=== PATIENT | female | born 1970 | race Caucasian/White ===

== ENCOUNTER 2020-10-04 08:00 | Day surgery (SDC) | payer OTHER ==
--- OUTSIDE RECORDS SUMMARY | 2020-10-04 08:04 | XMS REPORT | Clinical Summary ---
:1970 Author Organization [facility] Address [address] [place] [address] Care Team Providers Name Role Phone Dianna Snell MD Primary Care Provider Allergies Active Allergy Reactions Severity Noted Date Comments Insulin Nph, Beef-Pork Hives High 04/27/2016 Insulins Rash Low 01/13/2016 Beef, pork insu chasity and glucagon (the suspension that these meds are in) Beef, pork insu chasity and glucagon (the suspension that these meds are in) Phenytoin Sodium Other (See Comments) High 08/22/2013 [facility] Extended Medications Medication Sig Dispensed Refills Start End Status Date Date progesterone Take 100 mg 0 01/31/20 Activ e (PROMETRIUM) 100 MG by mouth 16 capsule daily. loratadine (CLARITIN) Take 10 mg by 0 Active 10 mg tablet mouth daily. B complex with Take 1 0 Activ e C#20-folic acid 1 mg capsule by capsule mouth daily. cholecalciferol, Take 5,000 0 Ac tive vitamin D3, (VITAMIN Units by D3) 5,000 unit capsule mouth daily. lancets (ONETOUCH Check glucose 0 10/14/19 Active DELICA LANCETS) 30 10 times 17 gauge misc daily. Type 1 diabetic on insulin pump ascorbic acid, vitamin Take 1,000 mg 0 Active C, (vitamin C) 1000 MG by mouth tablet daily. levothyroxine Take 25 mcg 0 03/08/20 Acti ve (SYNTHROID, LEVOXYL) by mouth 17 25 mcg tablet every morning. ramipril (ALTACE) 2.5 Take 2.5 mg 0 03/08/20 Active MG capsule by mouth 17 daily. ESTRADIOL ACETATE ORAL Take 1 mg by 0 Active mouth daily. ARMOUR THYROID 60 mg Take 60 mg by 3 08/10/20 Active tablet mouth daily. 17 simvastatin (ZOCOR) 20 Take 20 mg by 0 Active MG tablet mouth every morning. biotin 10,000 mcg Take 1 0 Ac tive capsule capsule by mouth daily. insulin GLARGINE Inject 7 0 Act albert (LANTUS) 100 unit/mL Units under injection (vial) the skin nightly. FIASP FLEXTOUCH U-100 Inject 1 2 05/01/20 Active INSULIN 100 unit/mL (3 Units under 19 mL) insulin pen the skin as needed. Per sliding scale pantoprazole Take 1 tablet 90 tablet 2 05/24/20 Act albert (PROTONIX) 40 MG EC (40 mg total) 19 tablet by mouth daily. gabapentin (NEURONTIN) Take 400 mg by mouth 3 (three) times a day. 400 mg in am 0 Active 400 mg capsule 400 mg at lunch and 600 mg at night folic acid (FOLVITE) 1 Take 1 mg by 0 06/01/20 Active MG tablet mouth daily. 20 azaTHIOprine (IMURAN) Take 1 tablet 90 tablet 1 07/22/2010/22 Active 50 mg tablet (50 mg total) 20 021 by mouth daily. UNABLE TO FIND daily. magnesim liquid 400 0 Active Ionic zinc liquid 15 mg LYSINE ORAL Take 1 tablet 0 Acti ve by mouth as needed. insulin aspart, Inject under 0 A ctive niacinamide, (Fiasp the skin. FlexTouch U-100 Insulin) 100 unit/mL (3 mL) insulin pen hydrOXYchloroQUINE TAKE ONE (1) 90 tablet 1 09/25/19 Active (PLAQUENIL) 200 mg TABLET(S) BY 21 tablet MOUTH ONCE A DAY. Motegrity 2 mg tablet TAKE 1 TABLET 180 tablet 1 10/02/19 Active TWICE A DAY 21 azaTHIOprine (IMURAN) Take 75 mg by 0 10/22 Discontinued 75 mg tablet mouth daily. 020 (Dos e 75 mg every adjustme nt) other day the rest is 50 mg hydroxychloroquine Take by mouth 0 Discontinued (PLAQUENIL) 200 mg daily. 020 ( Reorder) tablet gabapentin (NEURONTIN) Take 300 mg 360 capsule 3 05/01/2008/11 Discontinued 300 mg capsule in the morning, 300 mg in the afternoon, and 600 mg at night. gabapentin (NEURONTIN) Take 1 270 capsule 3 07/05/2007/04 400 mg capsule capsule (400 19 020 mg total) by mouth 3 (three) times a day. MOTEGRITY 2 mg tablet TAKE 1 TABLET 180 tablet 1 10/02/1904/21 Discontinued BY MOUTH 20 020 (Reorder) TWICE A DAY linaCLOtide (LINZESS) Take 1 30 capsule 11 10/04/19 Discontinued 72 mcg capsule capsule (72 20 020 (Re order) mcg total) by mouth daily before breakfast. linaCLOtide (Linzess) Take 1 30 capsule 11 01/16/20 Discontinued 72 mcg capsule capsule (72 20 020 (Th erapy mcg total) by comple justus) mouth daily before breakfast. prucalopride Take 1 tablet 180 tablet 1 06/27/20 Di scontinued (Motegrity) 2 mg (2 mg total) 20 021 tablet by mouth 2 (two) times a day. Accu-Chek Fe Plus 0 06/28/20 Discontinued test strp strip test 20 020 (Error) strips glucagon, human Glucagon Emergency Kit (yary n-recomb) 1 mg solution for injection 0 Discontinued recombinant, 1 mg INJECT 1 MG DIRECTED NEEDED 020 injection azaTHIOprine (IMURAN) Take 50 mg by 0 10/22 Discontinued 50 mg tablet mouth daily. 020 (Reo rder) hydrOXYchloroQUINE Take 1 tablet 90 tablet 1 07/22/20 Discontinued (PLAQUENIL) 200 mg (200 mg 20 021 tablet total) by mouth daily. INSULIN SUBCUTANEOUS Inject under 0 Discontinued PUMP, NOVOLOG,FIASP, the skin 020 (Error) 100 UNIT/ML INSULIN continuously. PUMP INFUSION (NovoLOG) ondansetron ODT Take 1 tablet 30 tablet 1 08/27/20 (Zofran ODT) 4 MG (4 mg total) 20 021 disintegrating tablet by mouth every 8 (eight) hours as needed for nausea or vomiting for up to 30 days. 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 Hypothyroidism 01/27/2017 Abnormal liver diagnostic imaging 01/26/2017 Abnormal LFTs 01/26/2017 Diabetic gastroparesis associated with type 1 diabetes mellitus 04/27/2016 Diabetic diarrhea 04/27/2016 Gastroesophageal reflux disease without esophagitis Allergic Anemia Arthritis Overview: Left thumb Hyperlipidemia Skin disease Disease of thyroid gland Visual impairment Toxic effect of mercury Resolved Problems Problem Noted Date Resolved Date Pulmonary hypertension 08/01/2020 08/09/2020 Overview: Added automatically from request for nicholas cancino [id number] Encounters Date Type Specialty Care Team Description 10/02/2020 Refill Gastroenterology Samy Gonzalez MD 09/24/2020 Refill Rheumatology Luci Jackson MD 09/21/2020 Orders Only Oncology Nautikrystal, Ivtet Hammond MD 08/30/2020 Infusion Oncology Nautiyal, Copper deficien cy (Primary Dx); Ivett Hammond, Pancytopenia (H CC); Iron deficiency anemia due to chronic blood loss 08/30/2020 Travel 08/29/2020 Infusion Oncology Nautiyal, Copper deficien cy (Primary Dx); Ivett Hammond, Pancytopenia (H CC); Iron deficiency anemia due to chronic blood loss 08/28/2020 Infusion Oncology Nautiyal, Copper deficien cy (Primary Dx); Ivett Hammond, Pancytopenia (H CC); Iron deficiency anemia due to chronic blood loss 08/28/2020 Travel 08/27/2020 Infusion Oncology Nautiyal, Copper deficien cy (Primary Dx); Ivett Hammond Pancytopenia (H CC); Iron deficiency anemia due to chronic blood loss 08/27/2020 Orders Only Oncology Colleen Ramon, RACHEL 08/27/2020 Orders Only Oncology Ck Vo, [facility] 08/26/2020 Infusion Oncology Nautiyal, Copper deficien cy (Primary Dx); Ivett Hammond Pancytopenia (H CC); Iron deficiency anemia due to chronic blood loss 08/26/2020 Travel 08/23/2020 Orders Only Oncology Ana Shelton, RN 08/22/2020 Orders Only Pharmacy Anna Singleton Ming 08/20/2020 Orders Only Oncology Ana Shelton, RN 08/19/2020 Orders Only Pharmacy Sheyla Barry, [facility] 08/13/2020 Orders Only Oncology Ivett Castro MD 08/12/2020 Orders Only Oncology Colleen Ramon, RACHEL 08/09/2020 Surgery Procedural Cardiology Rory Benedict Right heart cath MD Rafy [[id number] (CPT)] 08/09/2020 Hospital Encounter Procedural Cardiology Rory Benedict Pulmonary MD Rafy hypertension (H CC) 08/09/2020 Orders Only Oncology Wanda Ramonien cy , RACHEL (Primary Dx) 08/09/2020 Orders Only Pharmacy Sheyla Barry, [facility] 08/09/2020 Travel 08/08/2020 Orders Only Rheumatology Manuel SLE (systemic l upus Luci erythematosus r holly Bui MD syndrome) (HCC) (Primary Dx) 08/08/2020 Documentation Medical Records Provider, Unknown 08/06/2020 Travel 08/01/2020 Travel 08/01/2020 Orders Only Cardiology Rory Benedict Pulmonary cruz ry MD Rafy hypertension (H CC) (Primary Dx) 07/31/2020 Orders Only Rheumatology Luci Jackson MD 07/31/2020 Orders Only Oncology Ivett Castro MD 07/30/2020 Office Visit Oncology Nacarmelina, Lymphopenia; Ivett Hammond, History of auto immune disease 07/30/2020 Travel 07/25/2020 Travel 07/24/2020 Telephone Rheumatology Emeka Dumont MA 07/22/2020 Office Visit Rheumatology Cece, Lymphopenia (Pr imary Dx); Barb, Lymphocytic colitis; Manuel, History of auto immune disease; Luci SLE (systemic l upus erythematosus related syndrome) (HCC); MD Hao Autoimmune hepa titis (HCC); 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) 07/11/2020 Hospital Encounter Radiology Galati, Chronic p fiona Mendez MD congestion of liver 07/11/2020 Orders Only Rheumatology Provider, MD Nir 07/11/2020 Travel 07/04/2020 Travel 07/04/2020 Transcribe Orders Access Galati, Chronic pa nikkive Ruddy Mendez MD congestion of liver (Primary Dx) 06/27/2020 Orders Only Gastroenterology Octavio Patricia RN 06/06/2020 Orders Only Neurology Carmona, Lumbar radiculo mari (Primary Dx); POOJA Sullivan Thoracic back p ain, unspecified back pain laterality, unspecified chronicity 05/28/2020 Telephone Neurology Reynaldo Livingston MD 01/22/2020 Transcribe Orders Access Leroy Solano MD congestion of liver (Primary Dx) 01/16/2020 Orders Only Gastroenterology Octavio Patricia, RACHEL 12/28/2019 Telemedicine Gastroenterology Marilynn Gonzalez ga stroparesis associated with type 1 diabetes mellitus (HCC) (Primary Dx); Samy Mclean MD Gastroesophage al reflux disease without esophagitis 12/28/2019 E-Visit Family Medicine Syeda Stokes RE: E-Visit LANE Louise Submission: Hea rtburn 12/13/2019 Telephone Hepatology Last, Autoimmune hepa titis (HCC) (Primary Dx); MAREN Hollins Abnormal LFTs 11/17/2019 Hospital Encounter Radiology Reynaldo Livingston Cervical MD radiculopathy 10/16/2019 Orders Only Neurology Carmona, Cervical POOJA Sullivan radiculopathy (Primary Dx) 10/16/2019 Telephone Gastroenterology Scarlet Lawrence, RACHEL 10/04/2019 Orders Only Gastroenterology Samy Gonzalez MD after 10/04/2019 Immunizations Name Administration Dates Next Due Influenza Trivalent 06/08/2015 Influenza, Unspecified 05/31/2017 Surgical History Surgery Date Site/Laterality Comments SECTION OTHER SURGICAL HISTORY Hernia FOOT SURGERY Left CARPAL TUNNEL RELEASE Bilateral OTHER SURGICAL HISTORY Left thumb-De Quervain's OTHER SURGICAL HISTORY Left planters tarsal tendon OTHER SURGICAL HISTORY Breast maeve mp & reconstruction APPENDECTOMY COLONOSCOPY lympho colitis HAND SURGERY 2008 and 2012 HERNIA REPAIR SINUS SURGERY 09/20/1996 - 09/19/1997 TONSILLECTOMY 09/20/1988 - 09/19/1989 TUBAL LIGATION 09/20/1996 - 09/19/1997 UPPER GASTROINTESTINAL ENDOSCOPY KIDNEY SURGERY CARDIAC CATHETERIZATION 08/09/2020 N/A Procedur e: Right heart cath; Surgeon: Rory Benedict M D; Location: [facility] Engineer Internship Invasive Locatio n; Service: Cardiol ogy; Laterality: N/A; Medical History Medical History Date Comments Complication of anesthesia Crohn's disease (HCC) Gastroparesis Cirrhosis (HCC) SLE (systemic lupus erythematosus) (HCC) Diabetes mellitus type I (HCC) Allergic Anemia Arthritis Left thumb GERD (gastroesophageal reflux disease) Hyperlipidemia Visual impairment Celiac disease/sprue Toxic effect of mercury Melanoma (HCC) Autoimmune thyroiditis Pancytopenia (HCC) 08/09/2020 Family History Medical History Relation Name Comments Alcohol abuse Father Cancer Father Liver disease Father Gilbert's Alcohol abuse Maternal Grandfather Alcohol abuse Maternal Grandmother Breast cancer Maternal Grandmother Alcohol abuse Mother Breast cancer Mother Cancer Mother Skin cancer Mother Asthma Paternal Grandmother Other Sister PCOS Crohn's disease Sister Diabetes Sister Other Sister Relation Name Status Comments Father Alive Maternal Grandfather Maternal Grandmother Mother Alive Paternal Grandmother Sister Sister Social History Tobacco Use Types Packs/Day Years Used Date Never Smoker Smokeless Tobacco: Never Used Comments: She is , lives by hers elf. 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 Zohaib faria was born in [place] and raised [place] over. Alcohol Use Drinks/Week oz/Week Comments No Sex Assigned at Date Recorded Female 07/21/2020 6:35 PM [employer] Job Start Date Occupation Industry Not on file Not on file Not on file Last Filed Vital Signs Vital Sign Reading Time Taken Comments Blood Pressure 110/56 08/30/2020 4:28 PM [employer] Pulse 77 08/30/2020 4:28 PM [employer] Temperature 36.6 C (97.8 F) 08/30/2020 4:28 PM [employer] Respiratory Rate 18 08/30/2020 4:28 PM [employer]INE [employer]AGE [employer] Oxygen Saturation 99% 08/30/2020 4:28 PM [employer] Inhaled Oxygen Concentration - - Weight 56 kg (123 lb 6.4 oz) 08/30/2020 2:01 PM [employer] Height 157.5 cm (5' 2") 08/09/2020 10:33 AM [employer]ACHINE [employer] Body Mass Index 22.57 08/09/2020 10:33 AM [employer] Plan of Treatment Date Type Specialty Care Team Description 10/22/2020 Office [place] [address] [facility] [address] [place], [place] [address] 10/30/2020 [place] [address] [facility] [address] [place], [place] [address] Health Maintenance Due Date Last Done Comments COVID-19 VACCINE (1 of 2) 1985 CERVICAL CANCER SCREENING 1990 DIABETES: RETINAL EYE EXAM 12/31/2017 01/01/2016 DIABETIC FOOT EXAM 01/26/2018 01/26/2017 BREAST CANCER SCREENING 2019 COLONOSCOPY SCREENING 2019 SHINGLES VACCINES (#1) 2019 INFLUENZA VACCINE 04/20/2020 06/26/2018, 05/31/2017, 2014, Additional history exists Procedures Procedure Name Priority Date/Time Associated Diagnosis Comme nts CBC WITH PLATELET AND Routine 09/21/2020 10:09 Re sults for this DIFFERENTIAL AM [employer] procedure are i n the results section. POC GLUCOSE Routine 08/09/2020 5:05 Results for this PM [employer] procedure are i n the results section. POC GLUCOSE Routine 08/09/2020 4:20 Results for this PM [employer] procedure are i n the results section. POC GLUCOSE Routine 08/09/2020 3:48 Results for this PM [employer] procedure are i n the results section. CV RIGHT HEART CATH Routine 08/09/2020 3:18 Pulmonary Resu lts for this PM [employer] hypertension (HCC) procedure are in the results section. POC GLUCOSE Routine 08/09/2020 3:13 Results for this PM [employer] procedure are i n the results section. POC GLUCOSE Routine 08/09/2020 2:22 Results for this PM [employer] procedure are i n the results section. POC PANEL Routine 08/09/2020 11:21 Results for this AM [employer] procedure are i n the results section. ESTIMATED GFR Routine 08/09/2020 11:21 Results fo r this AM [employer] procedure are i n the results section. POC PANEL Routine 08/09/2020 10:09 Results for this AM [employer] procedure are i n the results section. ESTIMATED GFR Routine 08/09/2020 10:09 Results fo r this AM [employer] procedure are i n the results section. SMEAR REVIEW STAT 08/09/2020 10:08 Results for this AM [employer] procedure are i n the results section. HC COMPLETE BLD COUNT STAT 08/09/2020 10:08 Re sults for this W/AUTO DIFF AM [employer] procedure are i n the results section. ESTIMATED GFR STAT 08/09/2020 9:44 Results fo r this AM [employer] procedure are i n the results section. BASIC METABOLIC PANEL STAT 08/09/2020 9:44 Re sults for this AM [employer] procedure are i n the results section. POC GLUCOSE Routine 08/09/2020 9:06 Results for this AM [employer] procedure are i n the results section. COVID-19 QUALITATIVE Routine 08/07/2020 8:34 Pulmonary artery Results for this PCR AM [employer] hypertension (HCC) procedure are in the results section. URINE Routine 07/31/2020 9:53 Results for this PROTEIN/CREATININE AM [employer] procedure are in RATIO, RANDOM the results section. C-REACTIVE PROTEIN Routine 07/31/2020 9:53 Resul ts for this AM [employer] procedure are i n the results section. URINALYSIS, AUTOMATED Routine 07/31/2020 9:53 Re sults for this WITH MICROSCOPY AM [employer] procedure ar e in the results section. SEDIMENTATION RATE Routine 07/31/2020 9:53 Resul ts for this AM [employer] procedure are i n the results section. DNA(DS) AB, HIGH Routine 07/31/2020 9:53 Results for this AVIDIT AM [employer] procedure are i n the results section. C4 COMPLEMENT Routine 07/31/2020 9:53 Results fo r this COMPONENT AM [employer] procedure are i n the results section. C3 COMPLEMENT Routine 07/31/2020 9:53 Results fo r this COMPONENT AM [employer] procedure are i n the results section. ZINC LEVEL, SERUM Routine 07/31/2020 9:37 Result s for this AM [employer] procedure are i n the results section. COPPER LEVEL, SERUM Routine 07/31/2020 9:37 Resu lts for this AM [employer] procedure are i n the results section. VITAMIN B1 LEVEL, Routine 07/31/2020 9:37 Result s for this WHOLE BLOOD AM [employer] procedure are i n the results section. VITAMIN B12 LEVEL Routine 07/31/2020 9:37 Result s for this AM [employer] procedure are i n the results section. FERRITIN LEVEL Routine 07/31/2020 9:37 Results f or this AM [employer] procedure are i n the results section. IMMUNOFIXATION, SERUM Routine 07/31/2020 9:37 Re sults for this AM [employer] procedure are i n the results section. RETICULOCYTE COUNT, Routine 07/31/2020 9:37 Resu lts for this AUTOMATED AM [employer] procedure are i n the results section. TOTAL IRON BINDING Routine 07/31/2020 9:37 Resul ts for this CAPACITY AM [employer] procedure are i n the results section. LDH Routine 07/31/2020 9:37 Results for this AM [employer] procedure are i n the results section. [id number] Routine 07/31/2020 MRI ABDOMEN W WO Routine 07/11/2020 2:15 Chronic passive Resu lts for this CONTRAST PM CDT congestion of liver procedur e are in the results section. [id number] Routine 06/28/2020 MRI CERVICAL SPINE W Routine 11/17/2019 11:44 Cervical Res ults for this WO CONTRAST AM [employer] radiculopathy procedure are in the results section. ESTIMATED GFR Routine 11/17/2019 10:50 Results fo r this AM [employer] procedure are i n the results section. POC CREATININE Routine 11/17/2019 10:50 Results f or this AM [employer] procedure are i n the results section. after 10/04/2019 Results CBC with platelet and differential (09/21/2020 10:09 AM MACHINE [employer]AGE [employer]ER)Only the most recent of2 resultswithin the time period is included. WBC 3.0 (L) 3.8 - 10.8 [facility] Thousand/uL [place] RBC 2.98 (L) 3.80 - 5.10 [facility] Million/uL [place] HGB 11.4 (L) 11.7 - 15.5 [facility] g/dL [place] HCT 33.0 (L) 35.0 - 45.0 % [facility] [place] MCV 110.7 (H) 80.0 - 100.0 [facility] fL [place] MCH 38.3 (H) 27.0 - 33.0 pg [facility] [place] MCHC 34.5 32.0 - 36.0 [facility] g/dL [place] RDW 14.2 11.0 - 15.0 % [facility] [place] Platelet count 147 140 - 400 [facility] Thousand/uL [place] MPV 14.5 (H) 7.5 - 12.5 fL [facility] [place] Neutrophils, absolute 2,244 1,500 - 7,800 [facility] cells/uL [place] Lymphocytes, absolute 408 (L) 850 - 3,900 [facility] cells/uL [place] Monocytes, absolute 288 200 - 950 [facility] cells/uL [place] Eosinophils, absolute 30 15 - 500 [facility] cells/uL [place] Basophils, absolute 30 0 - 200 [facility] cells/uL [place] Neutrophils 74.8 % [facility] [place] Lymphocytes 13.6 % [facility] [place] Monocytes 9.6 % [facility] [place] Eosinophils 1.0 % [facility] [place] Basophils + RC 1.0 % [facility] [place] Specimen Narrative Performed At AN UPDATE OR CORRECTION HAS BEEN MADE TO NAME [facility] Resulting Agency Comment Performing Organization Information: Site ID: [id number] Name: [facility] Address: [address] [place] [address] Director: Charli Foote Performing Organization Address City/State/ZIP Code Phon e Number CHAR [facility] [place] [address] [place] [address] POC glucose (08/09/2020 5:05 PM MACHINE CAGE MAKER)Only the most recent of6 resultswithin the time period is included. Pathologist Sig nature POC glucose 84 65 - 99 mg/dL [facility] Comment: HOSPITAL Client Application Support Engineer Name: Vanessa Tam Device ID: [id number] Chartable: No Action Needed Specimen Blood Performing Organization Address City/[facility]/ZIP Code Phon e Number [facility] DEPARTMENT OF PATHOLOGY AND [address] [place], [place] [address] GENOMIC MEDICINE [facility] [address] [place] [address] lab tech procedure (08/09/2020 3:18 PM MACHINE CAGE MAKER) Specimen Narrative Performed At This result has an attachment that is no t available. Right femoral access 7F with US guidance. SG to wedge with flouro. [facility] Pressures, saturations recorded. Pressure hemostasis w ith no complication. Indication pulmonary hypertension suggested from non-i nvasive study and high right atrial pressure on prior invasive recording . Findings refute both. Recommendation: No change in Rx. Consider abnorm al PVR with symptoms/elevated pressures during exercise. Plan for bicycle echo exercise when COVID restrictions are eased. Performing Organization Address City/[facility]/ZIP Code Phon e Number [facility] [address] [place] [address], [place] Estimated GFR (08/09/2020 11:21 AM MACHINE CAGE MAKER)Only the most recent of4 resultswithin the time period is included. Estimated GFR >=90 mL/min/1.73 [facility] Comment: [facility]2 HOSPITAL Catergory Units Interpretation G1 >=90 Normal or high G2 60-89 Mildly decreased G3a 45-59 Mildly to moderately decreas ed G3b 30-44 Moderately to severely decre ased G4 15-29 Severely decreased G5 <15 Kidney failure The eGFR was calculated using the Chronic Kidney Disea se Epidemiology Collaboration (CKD-EPI) equation. Interpretation is based on recommendations of the National Kidney Foundation-Kidney Disease Outcomes Kevan lity Initiative (NKF-KDOQI) published in 2014. Specimen Blood Performing Organization Address City/[facility] Phon e Number [facility] DEPARTMENT OF PATHOLOGY AND [address] [place] [address] [address] POC panel (08/09/2020 11:21 AM MACHINE CAGE MAKER)Only the most recent of2 resultswithin the time period is included. POC sodium 140 135 - 148 [facility] mmol/L [facility] potassium 3.8 3.5 - 5.0 [facility] mmol/L [facility] chloride 103 99 - 109 [facility] mmol/L [facility] CO2 25 24 - 31 mmol/L [facility] POC glucose 122 (H) 65 - 99 mg/dL [facility] POC BUN 16 8 - 24 mg/dL [facility] POC creatinine 0.6 0.5 - 0.9 [facility] mg/dl [facility] hematocrit 45 37 - 47 % [facility] POC anion gap 17 8 - 20 mmol/L [facility] Comment: HOSPITAL Client Application Support Engineer Name: Rohit Cabrera Device ID: [id number] Specimen Performing Organization Address [facility] Phon e Number [facility] DEPARTMENT OF PATHOLOGY AND [address] [place] [id number] Smear review (08/09/2020 10:08 AM MACHINE CAGE MAKER) Pathologist Sig nature Platelet slide review Pino slt decr [facility] Anisocytosis Moderate [facility] Polychromasia Moderate [facility] Enlarged platelets Moderate (A) [facility] Specimen Plasma Narrative Performed At K recollect requested form Leah Bee/ [facility] DEPARTMENT OF PATHOLOGY AND GENOMIC Engineer Internship Pro Op at 08/09/2020 11:07 MEDICINE by JN1. Performing Organization Address City/[facility] Phon e Number [facility] DEPARTMENT OF PATHOLOGY AND [address] [place] [address] [address] Basic metabolic panel (08/09/2020 9:44 AM MACHINE CAGE MAKER) Pathologist Sig nature Sodium 133 (L) 135 - 148 mEq/L [facility] Potassium SEE COMMENT 3.5 - 5.0 mEq/L [facility] Comment: HOSPITAL Footnote--------- Unable to report K due to hemolysis; recollect request pending Chloride 98 98 - 112 mEq/L [facility] CO2 22 (L) 24 - 31 mEq/L [facility] Anion gap 13@ANIO 7 - 15 mEq/L [facility] BUN 16 6 - 20 mg/dL [facility] Creatinine 0.56 0.50 - 0.90 [facility] mg/dL [facility] Glucose 167 (H) 65 - 99 mg/dL [facility] Calcium 9.5 8.3 - 10.2 [facility] mg/dL HOSPITAL Specimen Plasma Performing Organization Address [facility] Phon e Number [facility] DEPARTMENT OF PATHOLOGY AND [address] [place] [address] COVID-19 qualitative PCR (08/07/2020 8:34 AM MACHINE CAGE MAKER) Interpretation Negative results do not prec lude 2019-nCoV infection and should not be used as the sole basis for treatment or other patient management decisions. Negative results must be combined with clinical observations, patient history, and epidemiological CORTEZ information. [facility] COVID-19 qualitative Not-Detected Not-Detecte [facility] PCR result d [facility] COVID-19 qualitative See link below for [facility] PCR PDF Lab EVANGELICAL ReportComment: Case HOSPITAL Number: [id number] Specimen Nasal swab Performing Organization Address [facility] Phon e Number [facility] DEPARTMENT OF PATHOLOGY AND [address] [place] [address] DNA(ds) Ab, high avidit (07/31/2020 9:53 AM MACHINE CAGE MAKER) Pathologist Sig nature DNA(DS) Ab, high <12.3 < OR = 30.0 [facility] avidity IU/mL [facility] Specimen Narrative Performed At FASTING:YES [facility] FASTING: YES Resulting Agency Comment Performing Organization Information: Site ID: EZ Name: Char [facility], Address: [address] [place] [phone] Director: Sarika Ansari MD,PhD,MB A Performing Organization Address City/State/ZIP Code Phon e Number [facility] [address] [place], [place] [phone] [facility] [address] Urine protein/creatinine ratio, random (07/31/2020 9:53 AM MACHINE CAGE MAKER) Creatinine, 10 (L) 20 - 275 [facility] urine, random mg/dL [facility] Prot/creat ratio, NOTE 21 - 161 mg/g [facility] urine Comment: creat [facility] THE PROTEIN VALUE IS LESS THAN 4 MG/DL THEREFORE WE ARE UNABLE TO CALCULATE EXCRETION AND/OR CREATININE RATIO. Protein/Creat NOTE 0.021 - 0.161 [facility] Ratio mg/mg creat [facility] Protein, urine <4 (L) 5 - 24 mg/dL [facility] random [facility] Specimen Narrative Performed At FASTING:YES [facility] FASTING: YES Resulting Agency Comment Performing Organization Information: Site ID: RGA Name: [facility] Address: [address] [place] [phone] Director: Charli Foote Performing Organization Address City/State/ZIP Code Phon e Number [facility] [employer] [facility] [place] [phone] Urinalysis, automated with microscopy (07/31/2020 9:53 AM MACHINE CAGE MAKER) Color, UA YELLOW YELLOW [facility] Appearance CLEAR CLEAR [facility] Specific gravity, 1.003 1.001 - 1.035 [facility] urine [facility] pH, urine 5.5 5.0 - 8.0 [facility] Glucose, urine NEGATIVE NEGATIVE [facility] Bilirubin, UA NEGATIVE NEGATIVE [facility] Ketones, UA NEGATIVE NEGATIVE [facility] Occult blood, urine NEGATIVE NEGATIVE [facility] Protein, UA NEGATIVE NEGATIVE [facility] Nitrite, UA NEGATIVE NEGATIVE [facility] Leukocyte esterase, NEGATIVE NEGATIVE [facility] UA [facility] WBC, UA NONE SEEN < OR = 5 /HPF [facility] RBC, UA NONE SEEN < OR = 2 /HPF [facility] Squamous epithelial NONE SEEN < OR = 5 /HPF [facility] cells, UA [facility] Bacteria, UA NONE SEEN NONE SEEN /HPF [facility] Hyaline casts, UA NONE SEEN NONE SEEN /LPF [facility] Specimen Narrative Performed At FASTING:YES [facility] FASTING: YES Resulting Agency Comment Performing Organization Information: Site ID: RGA Name: [facility] Address: [address] [place] [phone] Director: Charli Foote Performing Organization Address [facility] Phon e Number [facility] [place] [address] [place], [place] [phone] Sedimentation rate (07/31/2020 9:53 AM MACHINE CAGE MAKER) Pathologist Sig nature Sedimentation rate 25 (H) < OR = 20 mm/h [facility] Specimen Narrative Performed At FASTING:YES [facility] FASTING: YES Resulting Agency Comment Performing Organization Information: Site ID: RGA Name: [facility] Address: [address] [place] [phone] Director: Charli Foote Performing Organization Address [facility] Phon e Number [facility] [address] [place] [address] C3 complement component (07/31/2020 9:53 AM MACHINE CAGE MAKER) Pathologist Sig nature C3 complement 71 (L) 83 - 193 mg/dL [facility] Specimen Narrative Performed At FASTING:YES [facility] FASTING: YES Resulting Agency Comment Performing Organization Information: Site ID: RGA Name: [facility] Address: [address] [place] [phone] Director: Charli Foote Performing Organization Address [facility] Phon e Number [facility] [address] [place] [phone] C4 complement component (07/31/2020 9:53 AM MACHINE CAGE MAKER) Pathologist Sig nature C4 complement 16 15 - 57 mg/dL [facility] Specimen Narrative Performed At FASTING:YES [facility] FASTING: YES Resulting Agency Comment Performing Organization Information: Site ID: RGA Name: [facility] Address: [address] [place] [phone] Director: Charli Foote Performing Organization Address [facility] Phon e Number [facility] [place] [address] [place] [address] C-reactive protein (07/31/2020 9:53 AM MACHINE CAGE MAKER) Pathologist Sig nature CRP 1.3 <8.0 mg/L [facility] Specimen Narrative Performed At FASTING:YES [facility] FASTING: YES Resulting Agency Comment Performing Organization Information: Site ID: PHIL Name: [facility] Address: [address] [place] [phone] Director: Charli Foote Performing Organization Address [facility] [place] [address] Total iron binding capacity (07/31/2020 9:37 AM MACHINE CAGE MAKER) Pathologist Sig nature Iron level 58 45 - 160 mcg/dL [facility] Iron binding capacity 315 250 - 450 mcg/dL [facility] CS (calc) [facility] Iron saturation 18 16 - 45 % (calc) [facility] Specimen Narrative Performed At FASTING:YES [facility] FASTING: YES Resulting Agency Comment Performing Organization Information: Site ID: PHIL Name: [facility] Address: [address] [place] [phone] Director: Charli Foote Performing Organization Address [facility] [place] [address] Reticulocyte count, automated (07/31/2020 9:37 AM MACHINE CAGE MAKER) Pathologist Sig nature Retic count, manual 2.3 % [facility] Retic absolute, auto 74,060 20,000 - 80,000 [facility] cells/uL [facility] Specimen Narrative Performed At FASTING:YES [facility] FASTING: YES Resulting Agency Comment Performing Organization Information: Site ID: RGA Name: [facility] Address: [address] [place] [phone] Director: Charli Foote Performing Organization Address [facility]/ZIP [facility] [place] [address] Copper level, serum (07/31/2020 9:37 AM MACHINE CAGE MAKER) Copper 42 (L) 70 - 175 [facility] Comment: mcg/dL LIBORIO SHOEMAKER This test was developed and its analytical performance characteristics have been determined by [facility] It has not been cleared or approved by [facility] FDA. This assay has been validated pursuant to the CLI A regulations and is used for clinical purposes. Specimen Narrative Performed At FASTING:YES [facility] FASTING: YES Resulting Agency Comment Performing Organization Information: Site ID: [facility] Name: Char james Address: [address] [place] [address] Director: Nikita Chacon M.D. Performing Organization Address [facility] Phon e Number [facility] [place] [id number] [place] [address] [place] Vitamin B1 level, whole blood (07/31/2020 9:37 AM MACHINE CAGE MAKER) Vitamin B1, 77 (L) 78 - 185 [facility] whole blood Comment: nmol/L [facility] SAHARA Vitamin supplementation within 24 hours prior to blood draw may affect the accuracy of results. This test was developed and its analytical performance characteristics have been determined by [facility]. It has not been cleared or approved by [facility] FDA. This assay has been validated pursuant to the CLI A regulations and is used for clinical purposes. Specimen Narrative Performed At FASTING:YES [facility] FASTING: YES Resulting Agency Comment Performing Organization Information: Site ID: [facility] Name: [facility] Jessie james Address: [address] [place] [address] Director: Nikita Chacon M.D. Performing Organization Address [facility] Phon e Number [facility] [place] [phone] [place] [address] [place] Zinc level, serum (07/31/2020 9:37 AM MACHINE CAGE MAKER) Zinc 65 60 - 130 [facility] Comment: mcg/dL LIBORIO SHOEMAKER This test was developed and its analytical performance characteristics have been determined by [facility] It has not been cleared or approved by [facility] FDA. This assay has been validated pursuant to the CLI A regulations and is used for clinical purposes. Specimen Narrative Performed At FASTING:YES [facility] FASTING: YES Resulting Agency Comment Performing Organization Information: Site ID: [facility] Name: Char james Address: [address] [place] [address] Director: Nikita Chacon M.D. Performing Organization Address [facility] Phon e Number [facility] [place] [phone] [place] [address] [place] Immunofixation, serum (07/31/2020 9:37 AM MACHINE CAGE MAKER) Pathologist Sig nature Interpretation [facility] Comment: [facility]ICS-ABHI II Normal pattern. No monoclonal proteins detected. Specimen Narrative Performed At FASTING:YES [facility] FASTING: YES Resulting Agency Comment Performing Organization Information: Site ID: IG Name: [facility] Address: [address] [place] [phone] Director: Dr. Charli faria Performing Organization Address City/[facility] Phon e Number [facility] II [address] [place] [address] LDH (07/31/2020 9:37 AM MACHINE CAGE MAKER) Pathologist Sig nature LDH 199 120 - 250 U/L [facility] Specimen Narrative Performed At FASTING:YES [facility] FASTING: YES Resulting Agency Comment Performing Organization Information: Site ID: RGA Name: [facility] Address: [address] [place] [phone] Director: Charli Foote Performing Organization Address [facility] Phon e Number [facility] [address] [address] Ferritin level (07/31/2020 9:37 AM MACHINE CAGE MAKER) Pathologist Sig nature Ferritin level 49 16 - 232 ng/mL [facility] N Specimen Narrative Performed At FASTING:YES [facility] FASTING: YES Resulting Agency Comment Performing Organization Information: Site ID: RGA Name: [facility] Address: [address] [place] [phone] Director: Charli Foote Performing Organization Address [facility] Phon e Number [facility] [address] [address] Vitamin B12 level (07/31/2020 9:37 AM MACHINE CAGE MAKER) Pathologist Sig nature Vitamin B12 >2000 (H) 200 - 1100 pg/mL [facility] Specimen Narrative Performed At FASTING:YES [facility] FASTING: YES Resulting Agency Comment Performing Organization Information: Site ID: RGA Name: [facility] Address: [address] [place] [phone] Director: Charli Foote Performing Organization Address City/State/ZIP Code Phon e Number [facility] [address] [facility] [place] [address] Miscellaneous Lab Result (07/31/2020)Only the most recent of2 resultswithin the time period is included. Specimen Blood Narrative Performed At This result has an attachment that is no t available. MRI Abdomen W Wo Contrast (07/11/2020 2:15 PM CDT) Specimen Narrative Performed At This result has an attachment that is no t available. EXAMINATION: MRI ABDOMEN W WO CONTRAST HM [facility] CLINICAL HISTORY: 49 years Female K76. 1 Chronic passive congestion of liver, K76.1 CHRONIC PASSIVE CONGESTION OF LIVER TECHNIQUE: Multiplanar multisequence MR images of the abdomen were obtained pre- and post dynamic gadolinium based contrast administration. Contrast: Gadobutrol (Gadavist) Comparison: August 10, 2018. IMPRESSION: Lower Chest: Lung bases are clear. Liver: Few tiny foci of hypervascularity are seen in the liver, similar to the prior exam when accounting for differences in technique. The previous "nutmeg" appearance of the liver is less prominent likely related to differences in contrast timing. Gallbladder/Biliary: Gallbladder is unre markable. There is no biliary dilatation. Spleen: Normal in size. Pancreas: Unremarkable. Adrenal Glands: Unremarkable. Kidneys: Unchanged left renal pelvocalie ctasis. Right kidney within normal limits. Vascular: IVC and hepatic veins are dist ended, similar to previous study, without stenosis or thrombosis. Patent portal vein. Nodes: No regional adenopathy. Bowel: Bowel is unobstructed. Ascites/fluid collections: None. Musculoskeletal: No suspicious osseous lesions. Other: None. SUMMARY: 1.Previously seen nutmeg appearance of t he liver is less prominent on today's study likely related to differences in contrast timing/technique. The hepatic veins and IVC remain mild to moderately disten ded, and without evidence of stenosis or thrombosis. Liver is normal in contour, without cirrhotic feature s. 2.Unchanged left renal pelvocaliectasis. [id number] Procedure Note Hm Interface, Radiology Results Incoming - 07/11/2020 3:37 PM CDT EXAMINATION: MRI ABDOMEN W WO CONTRAST CLINICAL HISTORY: 49 years Female K76.1 Chronic passive congestion of liver, K76.1 CHRONIC PASSIVE CONGESTION OF LIVER TECHNIQUE: Multiplanar multisequence MR images of the abdomen were obtained pre- and post dynamic gadolinium based contrast administration. Contrast: Gadobutrol (Gadavist) Comparison: August 10, 2018. IMPRESSION: Lower Chest: Lung bases are clear. Liver: Few tiny foci of hypervascularity are seen in the liver, similar to the prior exam when accounting for differences in technique. The previous "nutmeg" appearance of the liver is less prominent likely related to differences in contrast timing. Gallbladder/Biliary: Gallbladder is unre markable. There is no biliary dilatation. Spleen: Normal in size. Pancreas: Unremarkable. Adrenal Glands: Unremarkable. Kidneys: Unchanged left renal pelvocalie ctasis. Right kidney within normal limits. Vascular: IVC and hepatic veins are dist ended, similar to previous study, without stenosis or thrombosis. Patent portal vein. Nodes: No regional adenopathy. Bowel: Bowel is unobstructed. Ascites/fluid collections: None. Musculoskeletal: No suspicious osseous l esions. Other: None. SUMMARY: 1.Previously seen nutmeg appearance of t he liver is less prominent on today's study likely related to differences in contrast timing/technique. The hepatic veins and IVC remain mild to moderately distended, and without evidence of stenosis or thrombosis. Liver is normal in contour, without cir rhotic features. 2.Unchanged left renal pelvocaliectasis. [id number] Performing Organization Address City/State/ZIP Code Phon e Number [facility] [address] [place] [address] MRI Cervical Spine W Wo Contrast (11/17/2019 11:44 AM MACHINE CAGE MAKER) Specimen Narrative Performed At This result has an attachment that is no t available. EXAMINATION: MRI CERVICAL SPINE W WO CONTRAST [facility] CLINICAL HISTORY: M54.12 Radiculopathy cervical pancho on, neck pain COMPARISON: None TECHNIQUE: Multiplanar multisequence non contrast enhanced examination was performed of the cervical spine precontrast as well as postcontrast axial and sagittal T1 images. FINDINGS: Vertebral body heights are maintained. N o focal marrow lesions or acure edema identified. There is some reversal the cervical lord osis centered at C5. There is no spondylolisthesis. Mild Modic type I endplate changes are noted anteriorly at C6-7 with mild edema and enhancement. No significant marrow changes appreciated. The cervicomedullary junction is unremar kable. No cord signal abnormality identified. The partially imaged posterior fossa is grossly intact . No gross masses are present in the visualized preverte bral soft tissues. Axial images through the disc spaces demonstrate the f ollowing: C1-C2: There is narrowing of the atlanto axial interval with spurring. There is no significant stenosis. C2-C3: No significant posterior disc dis ease, spinal canal or neural foraminal stenosis. C3-C4: No significant posterior disc dis ease, spinal canal or neural foraminal stenosis. C4-C5: There is mild disc desiccation wi thout disc bulge or significant spondylosis. The canal and foramina are widely patent. C5-C6: There is mild disc desiccation wi th anterior osteophytosis. There is no posterior spondylosis or canal narrowing. Uncovertebral arthrosis and facet disease is present on the left without stenosis. C6-C7: There is loss of disc height with anterior osteophytosis. There is no posterior spondylosis or canal narrowing. Uncovertebral arthrosis and facet disease results in mild and is a left foraminal fat. There is also a shallow left foraminal protrusion which abuts the exiting left C7 nerve root. Correlate for a left C7 radiculopathy to determine clinical significance. The right foramen is patent. C7-T1: No significant posterior disc dis ease, spinal canal or neural foraminal stenosis. IMPRESSION: There are degenerative changes most prom inent at C6-7 with loss of disc height and disc desiccation. Uncovertebral arthrosis and facet disease is also present on the left with question with shallow left foraminal protrusion. There is some degree of left foraminal narrowing identified with part ial effacement of the perineural fat. Correlate for a left C7 radiculopathy to determine clinical significance of this finding. No other significant abnormality appreciated. [id number] Procedure Note Hm Interface, Radiology Results - 11/17/2019 12:23 PM MACHINE CAGE MAKER EXAMINATION: MRI CERVICAL SPINE W WO CONTRAST CLINICAL HISTORY: M54.12 Radiculopathy cervical region, neck pain COMPARISON: None TECHNIQUE: Multiplanar multisequence non contrast enhanced examination was performed of the cervical spine precontrast as well as postcontrast axial and sagittal T1 images. FINDINGS: Vertebral body heights are maintained. N o focal marrow lesions or acure edema identified. There is some reversal the cervical lord osis centered at C5. There is no spondylolisthesis. Mild Modic type I endplate changes are noted anteriorly at C6-7 with mild edema and enhancement. No significant marrow changes appreciated. The cervicomedullary junction is unremar kable. No cord signal abnormality identified. The partially imaged posterior fossa is grossly intact. No gross masses are present in the visua lized prevertebral soft tissues. Axial images through the disc spaces dem onstrate the following: C1-C2: There is narrowing of the atlanto axial interval with spurring. There is no significant stenosis. C2-C3: No significant posterior disc dis ease, spinal canal or neural foraminal stenosis. C3-C4: No significant posterior disc dis ease, spinal canal or neural foraminal stenosis. C4-C5: There is mild disc desiccation wi thout disc bulge or significant spondylosis. The canal and foramina are widely patent. C5-C6: There is mild disc desiccation wi th anterior osteophytosis. There is no posterior spondylosis or canal narrowing. Uncovertebral arthrosis and facet disease is present on the left without stenosis. C6-C7: There is loss of disc height with anterior osteophytosis. There is no posterior spondylosis or canal narrowing. Uncovertebral arthrosis and facet disease results in mild and is a left foraminal fat. There is also a shallow left foraminal protrusion which abuts the exiting left C7 nerve root. Correlate for a left C7 radiculopathy to determine clinical significance. The right foramen is patent. C7-T1: No significant posterior disc dis ease, spinal canal or neural foraminal stenosis. IMPRESSION: There are degenerative changes most prom inent at C6-7 with loss of disc height and disc desiccation. Uncovertebral arthrosis and facet disease is also present on the left with question with shallow left foraminal protrusion. There is some degree of left foraminal narrowing identified with part ial effacement of the perineural fat. Correlate for a left C7 radiculopathy to determine clinical significance of this finding. No other significant abnormality appreciated. [facility]-[id number] Performing Organization Address City/State/ZIP Code Phon e Number [facility] [address] [place] [address] POC creatinine (11/17/2019 10:50 AM MACHINE CAGE MAKER) POC creatinine 0.6 0.5 - 0.9 [facility] Comment: mg/dl [facility] Client Application Support Engineer Name: Capo NEFF C ARE Device ID: [id number] CENTER Specimen Blood Performing Organization Address City/State/ZIP Code Phon e Number DEPARTMENT OF PATHOLOGY AND [address] [place] [address] [facility], [facility] [address] [place] [address] [facility] after 10/04/2019
--- OUTSIDE RECORDS SUMMARY | 2020-10-04 08:04 | XMS REPORT | Continuity of Care Document ---
:1970 Author Organization [facility] Care Team Providers Name Role Phone [facility] Unavailable Un available Problems Problem Status Onset Date Classification Date Comments Sour ce Reported 719.47 - Active 07/16/2014 [facility] Medications No Data Provided for This Section Allergies, Adverse Reactions, Alerts No Known Medication Allergies Immunizations No Data Provided for This Section Results No Data Provided for This Section Pathology Reports No Data Provided for This Section Diagnostic Reports Report Value Date Source Ankle wo contrast MRI MRI of the left Ankle 07/20/2014 [facility] History: Plantar fasciitis tarsal tunnel release Comparison Study: none Technique: The study was pe rformed on a high-field magnet without intravenous contrast. Findings: Collateral Ligaments: The ATF appears intact. The calcaneal fibular ligament appears intact. The posterior talofibular ligament appears intac t. The deep fibers of the deltoid complex appears i ntact. Syndesmotic Complex: Intact Extensor Tendons: Intact. Flexor Tendons: Intact. Peroneus Tendons: Intact. Achilles Tendon: Intact. There is mild circumferentia l soft tissue edema adjacent to the Achilles tendon suggestive of peritendinitis. No tendon tear. Plantar Fascia: There is mil d thickening of the central band of the plantar fascia within 3 cm of the calcaneal insertion compatible with chronic plantar fasciitis. No mass lesion rupture. No bone marro w edema. The greatest thickness of the plantar f ascia measures 5 mm. Osseous Structures: There ar e no osteochondral defects in the talar dome or tibial plafond. Small ankle effusion without synovial thickening . There is no acute fracture. There is no stress related injury. The middle and posterior subtalar joint appear i ntact. Sinus Tarsi: Talocalcaneal a nd cervical ligaments remain intact. No synovitis or fluid. Tarsal Tunnel: No intrinsic mass or extrinsic encroachment noted upon the tibialis posterior neurovascular bundle. There is suggestion of minim al postoperative changes in the subcutaneous fat superficial to the tarsal tunnel contents at the posterior medial ankle.. Impression: Chronic appearing plantar fasciitis without mass lesion or rupture. Mild Achilles peritendinitis. Question minimal postoperati ve changes in the subcutaneous fat superficial to the contents of the tarsal tunnel. No mass lesion or effacement of the perineural fat. Dictation Code: 100 Consultation Notes No Data Provided for This Section Discharge Summaries No Data Provided for This Section History and Physicals No Data Provided for This Section Vital Signs No Data Provided for This Section Encounters Location Location Encounter Encounter Reason Attending ADM IA Stat us Source Details Type Number For Provider Date Date Visit [facility] Outpt Diag [id number] Tono 07/20 07/21 [facility] [place] Procedures No Data Provided for This Section Assessment and Plan No Data Provided for This Section Plan of Care No Data Provided for This Section Social History No Data Provided for This Section Family History No Data Provided for This Section Advance Directives No Data Provided for This Section Functional Status No Data Provided for This Section
--- OUTSIDE RECORDS SUMMARY | 2020-10-04 08:05 | XMS REPORT | Continuity of Care Document ---
:1970 Author Organization [facility] t Address [address] [place] [address] Care Team Providers Name Role Phone Don Snell MD. Primary Care Physician Vinay Gonzalez MD Attending Clinician Hao Jackson MD Attending Clinician Manish Catsro MD Attending Clinician Tristen RAMOS Attending Clinician Unavailable Tavo [facility] Attending Clinician Unavailable Nikita RN Attending Clinician Unavailable Mani [facility] Attending Clinician Unavailable Jhonny [facility], A Attending Clinician Unavailable Rafy Benedict MD Attending Clinician Provider Attending Clinician Unavailable Kenrick Dumont MA Attending Clinician Unavailable Cece VENEGAS Attending Clinician Andrea Solano MD Attending Clinician Constantine IGLESIAS Attending Clinician Harshad RAMOS Attending Clinician Unavailable Mathew PATTON Attending Clinician Unavailable Yara IGLESIAS Attending Clinician Aspen Stokes NP Attending Clinician Last ENGEL Attending Clinician Unavailable Howard RAMOS Attending Clinician Unavailable Kari Gusman Attending Clinician STEPHANIE Admitting Clinician Unavailable Payers Payer Name Policy Type Policy Effective Date Expiration Date Sour ce Number AETNAAETNA [id number] 2020 [facility] Gisel LEE/[id number] -Present HMO Problems Condition Condition Condition Status Onset Resolution Last Treating Co mments Source Name Details Category Date Date Treatment Clinician Date 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 1-20 Me thodi 00:00: st Pancytopen Pancytopen Disease Active 2019-09 H lucas ia ia 1-20 Methodi 00:00: st 00 Cervical Cervical Disease Active [place] radiculopa radiculopa 8-12 Me [facility] thy thy 00:00: st 00 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- Me thodi regurgitat regurgitat 00:00: st ion) ion) 00 Exposure Exposure Disease Active [place] to mercury to mercury 6-13 Me thodi 00:00: st 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 5-12 Meth martha 00:00: st 00 Hypothyroi Hypothyroi Disease Active H lucas dism dism 5-10 Methodi 00:00: st 00 Abnormal Abnormal Disease Active [place] liver liver 5 Methodi diagnostic diagnostic 00:00: st imaging imaging 00 Abnormal Abnormal Disease Active [place] LFTs LFTs 5- Methodi 00:00: st 00 Diabetic Diabetic Disease Active [place] gastropare gastropare 8-08 Me thodi sis sis 00:00: st associated associated 00 with type with type 1 diabetes 1 diabetes mellitus mellitus Diabetic Diabetic Disease Active [place] diarrhea diarrhea 808 Method i 00:00: st 00 Gastroesop Gastroesop Disease Active H lucas hageal hageal 808 Methodi reflux reflux 00:00: st disease disease 00 without without esophagiti esophagiti s s 719.47 - Diagnosis Active 2013-092014-07-20 M emoria JOINT 0- 07:49:00 l PAIN-ANKL 719.47 - 00:01: Her william JOINT 00 PAIN-ANKL Active 07/16/2014 MH OPID [facility] Allergic Allergic Disease Active [place] Methodi st Anemia Anemia Disease Active [place] Methodi Arthritis Arthritis Disease Active Overview: [place] Left Methodi thumb st Hyperlipid Hyperlipid Disease Active H lucas emia emia Methodi st Skin Skin Disease Active [place] disease disease Methodi st Disease of Disease of Disease Active H luc[facility] thyroid thyroid Methodi gland gland st Visual Visual Disease Active [place] impairment impairment Me thodi st 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 st Pulmonary Pulmonary Disease Resolve 2019-092020-08-09 2020-08-09 [place] hypertensi hypertensi d -12 00:00:00 15:32:08 Methodi on on 00:00: st 00 Allergies, Adverse Reactions, Alerts Allergy Allergy Status Severity Reaction(s) Onset Inactive Treating Comm ents Source Name Type Date Date Clinician Insulin Propensi Active Hives [place] Nph, ty to 04-27 Methodi Beef-Por adverse 00:00: st k reaction 00 s to drug Insulins Propensi Active Rash Beef, [place] ty to 01-12 pork Methodi adverse 00:00: insulin st reaction 00 and s to glucagon drug (the suspensio n that these meds are in)Beef, pork insulin and glucagon (the suspensio n that these meds are in) Phenytoi Propensi Active Other (See 2012-09 nystagmus [place] n Sodium ty to Comments) 2 Metho di Extended adverse 00:00: st reaction 00 s to drug Family History Family Member Diagnosis Comments Start Date Stop Date Source Natural father Alcohol abuse [place] [employer] Natural father Cancer [facility] thodist Natural father Liver disease [place] [employer] Maternal grandfather Alcohol abuse [place] Maternal grandmother Alcohol abuse [place] Maternal grandmother Breast cancer [place] Natural mother Alcohol abuse [place] [employer] Natural mother Breast cancer [place] [employer] Natural mother Cancer [facility] thodist Natural mother Skin cancer [facility] [place] [place] ethodist Paternal grandmother Asthma [place] Natural sister Crohn's disease [place] Natural sister Diabetes [facility] thodist Natural sister Other [facility] thodist Social History Social Habit Start Date Stop Date Quantity Comments Source Sex Assigned At [facility] ethodist Tobacco use and 2020-08-12 2020-08-[address] [facility] [place] ethodist exposure 00:00:00 00:00:00 Alcohol intake 2020-08-12 2020-08-12 Current [facility] thodist 00:00:00 00:00:00 non-drinker of alcohol (finding) Tobacco Comment 2017-01-26 2017-01-26 She is , Caty ston [employer] 00:00:00 00:00:00 lives by herself. 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 She was born in [place]. Smoking Status Start Date Stop Date Source Never smoker [place] Method[facility] t Medications Ordered Filled Start Stop Current Ordering Indication Dosage Frequency Signature Comments Components Source Medication Medication Date Date Medication? Clinician (SIG) Name Name Mandy 2 Yes TAKE 1 [place] mg tablet 1-13 TABLET Methodi 00:00: TWICE A st 00 DAY hydrOXYchlo Yes TAKE ONE [place] roQUINE 1-06 (1) Methodi (PLAQUENIL) 00:00: TABLET(S) s t 200 mg 00 BY MOUTH tablet ONCE A DAY. loratadine 2019-09 Yes 10mg QD Take 10 mg [place] (CLARITIN) 2-10 by mouth Metho di 10 mg 14:58: daily. st tablet 44 B complex 2019-09 Yes 1{capsu QD Take 1 Cat[place] ston with 2-10 le} capsule by Methodi C#20-folic 14:58: mouth st acid 1 mg 44 daily. capsule cholecalcif 2020 Yes 5000U QD Take 5,000 [place] rigoberto, 2-10 Units by Methodi vitamin D3, 14:58: mouth st (VITAMIN 44 daily. D3) 5,000 unit capsule ascorbic 2020 Yes 1000mg QD Take 1,000 [place] acid, 2-10 mg by Methodi vitamin C, 14:58: mouth st (vitamin C) 44 daily. 1000 MG tablet ESTRADIOL 2019-09 Yes 1mg QD Take 1 mg [place] st[place] ACETATE 2-10 by mouth Methodi ORAL 14:58: daily. st 44 simvastatin 2019- Yes 20mg QD Take 20 mg [place] (ZOCOR) 20 2-10 by mouth Metho di MG tablet 14:58: every st 44 morning. biotin 2020- Yes 1{capsu QD Take 1 [place] 10,000 mcg 2-10 le} capsule by Met fatimai capsule 14:58: mouth st 44 daily. insulin 2020- Yes 7U QD Inject 7 [place] GLARGINE 2-10 Units Methodi (LANTUS) 14:58: under the st 100 unit/mL 44 skin injection nightly. (vial) gabapentin 2019-09 Yes 400mg Q.[id number] Take 400 [place] (NEURONTIN) 2-10 [id number] mg by M ethodi 400 mg 14:58: 3D mouth 3 st capsule 44 (three) times a day. 400 mg in am 400 mg at lunch and 600 mg at night UNABLE TO 2019-09 Yes QD daily. [place] FIND 2-10 magnesim Methodi 14:58: liquid 400 st 44 Ionic zinc liquid 15 mg LYSINE ORAL 2019-09 Yes 1{tbl} Take 1 Thaddeus davey 2-10 tablet by Methodi 14:58: mouth as st 44 needed. insulin 2019-09 Yes Inject [place] aspart, 2-10 under the Methodi niacinamide 14:58: skin. st , (Fiasp 44 FlexTouch U-100 Insulin) 100 unit/mL (3 mL) insulin pen ondansetron 2019-09 No 4mg Q8H Take 1 Caty maamerupali ODT (Zofran 2-08 09-26 tablet (4 Me thodi ODT) 4 MG 00:00: 23:59 mg total) st disintegrat 00 :00 by mouth ing tablet every 8 (eight) hours as needed for nausea or vomiting for up to 30 days. INSULIN 2019-09- No Inject [place] SUBCUTANEOU 10-09 under the Az thodi S PUMP, 15:57: 00:[address] NOVOLOG,PAUL 57 :00 continuous SP, 100 ly. UNIT/ML INSULIN PUMP INFUSION (NovoLOG) hydroxychlo 2019-09- No QD Take by Thaddeus davey roquine 09-21 mouth Methodi (PLAQUENIL) 16:54: 00:[address] 200 mg 39 :00 tablet azaTHIOprin 2019-09- No 50mg QD Take 50 mg [place] e (IMURAN) 09-21 by mouth Meth martha 50 mg 16:54: 00:[address] tablet 39 :00 glucagon, 2019-09- No Glucagon [place] st[place] human 09-21 Emergency Methodi recombinant 16:03: 00:[address] , 1 mg 31 :00 (human-rec injection omb) 1 mg solution for injection INJECT 1 MG DIRECTED NEEDED azaTHIOprin 2019-09- No 75mg QD Take 75 mg [place] e (IMURAN) 09-21 by mouth Meth martha 75 mg 16:01: 00:[address] tablet 39 :00 mg every other day the rest is 50 mg azaTHIOprin 2019-09- Yes 50mg QD Take 1 [place] st[place] e (IMURAN) 09-21 tablet (50 Me thodi 50 mg 00:00: 23:59 mg total) st tablet 00 :00 by mouth daily. hydrOXYchlo 2019-09 No 200mg QD Take 1 [place] roQUINE 09-21 tablet Methodi (PLAQUENIL) 00:00: 00:00 ([address] 200 mg 00 :00 total) by tablet mouth daily. Accu-Chek 2019-09- No [place] Fe Plus 008-09 Methodi test strp 00:00: 00:00 st strip test 00 :00 strips prucaloprid 2019-09- No 2mg Q.5D Take 1 [place] e 10-02 tablet (2 Methodi (Motegrity) 00:00: 00:00 mg total) st 2 mg tablet 00 :00 by mouth 2 (two) times a day. folic acid Yes 1mg QD Take 1 mg [place] (FOLVITE) 1 06-01 by mouth Meth martha MG tablet 00:00: daily. st 00 linaCLOtide 2019- No 72ug QD Take 1 [place] st[place] (Linzess) 4-07-22 capsule Method i 72 mcg 00:00: 00:00 ([address] capsule 00 :00 total) by mouth daily before breakfast. linaCLOtide 2019- No 72ug QD Take 1 [place] st[place] (LINZESS) 1-15 01-15 capsule Method i 72 mcg 00:00: 00:00 ([address] capsule 00 :00 total) by mouth daily before breakfast. MOTEGRITY 2 2019- No TAKE 1 Caty ston mg tablet 10-02 TABLET BY Meth martha 00:00: 00:[address] 00 :00 TWICE A DAY gabapentin 2018-09- No 400mg Q.[id number] Take 1 [place] (NEURONTIN) 0-16 10-15 [id number] capsule Methodi 400 mg 00:00: 23:59 3D ([address] capsule 00 :00 total) by mouth 3 (three) times a day. pantoprazol Yes 40mg QD Take 1 [place] e 9-04 tablet (40 Methodi (PROTONIX) 00:00: mg total) st 40 MG EC 00 by mouth tablet daily. FIASP Yes 1U Inject 1 [place] FLEXTOUCH 8-12 Units Methodi U-100 00:00: under the st INSULIN 100 00 skin as unit/mL (3 needed. mL) insulin Per pen sliding scale gabapentin 2020- No Take 300 [place] (NEURONTIN) 8-12 11-19 mg in the Me thodi 300 mg 00:00: 00:00 morning, st capsule 00 :00 300 mg in the afternoon, and 600 mg at night. ARMOUR 2016-09 Yes 60mg QD Take 60 mg [place] THYROID 60 1-21 by mouth Metho di mg tablet 00:00: daily. st 00 levothyroxi Yes 25ug QD Take 25 [place] ston ne 6-19 mcg by Methodi (SYNTHROID, 00:00: mouth st LEVOXYL) 25 00 every mcg tablet morning. ramipril Yes 2.5mg QD Take 2.5 [place] (ALTACE) 6-19 mg by Methodi 2.5 MG 00:00: mouth st capsule 00 daily. lancets Yes Check [place] (ONETOUCH 1-25 glucose 10 Meth martha DELICA 00:00: times st LANCETS) 30 00 daily. gauge misc Type 1 diabetic on insulin pump progesteron Yes 100mg QD Take 100 [place] e 5-13 mg by Methodi (PROMETRIUM 00:00: mouth st ) 100 MG 00 daily. capsule Immunizations Ordered Immunization Filled Immunization Date Status Commen ts Source Name Name Influenza, 2017-05-31 Completed Lior Unspecified 00:00:00 [employer] Influenza Trivalent 2015-06-08 Completed Adri on 00:00:00 [employer] Vital Signs Vital Name Observation Time Observation Value Comments Source Systolic blood 2020-08-30 16:28:00 110 mm[Hg] Scarlett Batres pressure Diastolic blood 2020-08-30 16:28:00 56 mm[Hg] [place] [facility] [facility] pressure Heart rate 2020-08-30 16:28:00 77 /min Lior Batres Body temperature 2020-08-30 16:28:00 36.56 Juliette [place] [employer] Respiratory rate 2020-08-30 16:28:00 18 /min Elysia Batres Oxygen saturation in 2020-08-30 16:28:00 99 /min Lior Batres Arterial blood by Pulse oximetry Body weight 2020-08-30 14:01:00 55.974 kg Lior Batres BMI 2020-08-30 14:01:00 22.57 kg/m2 Lior Batres Body height 2020-08-09 10:33:00 157.5 cm Lior Batres Procedures Procedure Date / Time Performed Performing Clinician Sourc e CBC WITH PLATELET AND 2020-09-21 10:09:00 Manoj Castro DIFFERENTIAL POC GLUCOSE 2020-08-09 17:05:00 Lidya Benedict POC GLUCOSE 2020-08-09 16:20:00 Lidya Benedict POC GLUCOSE 2020-08-09 15:48:00 Lidya Benedict CV RIGHT HEART CATH 2020-08-09 15:18:40 Lidya Benedict [facility] [employer] POC GLUCOSE 2020-08-09 15:13:00 Lidya Benedict POC GLUCOSE 2020-08-09 14:22:00 Lidya Benedict ESTIMATED GFR 2020-08-09 11:21:00 Lidya Benedict POC PANEL 2020-08-09 11:21:00 Lidya Benedict ESTIMATED GFR 2020-08-09 10:09:00 Lidya Benedict POC PANEL 2020-08-09 10:09:00 Lidya Benedict HC COMPLETE BLD COUNT 2020-08-09 10:08:00 Lidya Benedict W/AUTO DIFF SMEAR REVIEW 2020-08-09 10:08:00 Lidya Benedict BASIC METABOLIC PANEL 2020-08-09 09:44:00 Lidya Benedict ESTIMATED GFR 2020-08-09 09:44:00 Lidya Benedict POC GLUCOSE 2020-08-09 09:06:00 Lidya Benedict COVID-19 QUALITATIVE PCR 2020-08-07 08:34:00 Lidya Benedict C4 COMPLEMENT COMPONENT 2020-07-31 09:53:00 Luci Jackson DNA(DS) AB, HIGH AVIDIT 2020-07-31 09:53:00 Luci Jackson SEDIMENTATION RATE 2020-07-31 09:53:00 Luci Jackson URINALYSIS, AUTOMATED 2020-07-31 09:53:00 Luci Jackson WITH MICROSCOPY C-REACTIVE PROTEIN 2020-07-31 09:53:00 Luci Jackson URINE PROTEIN/CREATININE 2020-07-31 09:53:00 Luci Jackson RATIO, RANDOM LDH 2020-07-31 09:37:00 Manoj Castro TOTAL IRON BINDING 2020-07-31 09:37:00 Manoj Castro CAPACITY RETICULOCYTE COUNT, 2020-07-31 09:37:00 Manoj Castro AUTOMATED IMMUNOFIXATION, SERUM 2020-07-31 09:37:00 Manoj Castro FERRITIN LEVEL 2020-07-31 09:37:00 Manoj Castro VITAMIN B12 LEVEL 2020-07-31 09:37:00 Manoj Castro [employer] VITAMIN B1 LEVEL, WHOLE 2020-07-31 09:37:00 Manoj Castro BLOOD COPPER LEVEL, SERUM 2020-07-31 09:37:00 Manoj Castro ZINC LEVEL, SERUM 2020-07-31 09:37:00 Manoj Castro [employer] [id number] 2020-07-31 00:00:00 ProviderNir MRI ABDOMEN W WO CONTRAST 2020-07-11 14:15:00 Ruddy Solano [id number] 2020-06-28 00:00:00 Provider, Nir Batres MRI CERVICAL SPINE W WO 2019-11-17 11:44:48 Mandy Velazco [employer] CONTRAST POC CREATININE 2019-11-17 10:50:00 Mandy Velazco Meth odist ESTIMATED GFR 2019-11-17 10:50:00 Mandy Velazco Plan of Care Planned Activity Planned Date Details Comments Source Future Scheduled 2020-04-20 INFLUENZA VACCINE [place] [facility] [facility] Test 00:00:00 [code = INFLUENZA VACCINE] Future Scheduled 2019 BREAST CANCER [place] Me thodist Test 00:00:00 SCREENING [code = BREAST CANCER SCREENING] Future Scheduled 2019 COLONOSCOPY SCREENING [place] [facility] Test 00:00:00 [code = COLONOSCOPY SCREENING] Future Scheduled 2019 SHINGLES VACCINES [place] [facility] Test 00:00:00 (#1) [code = SHINGLES VACCINES (#1)] Future Scheduled 2018-01-26 DIABETIC FOOT EXAM [place] [facility] [facility] Test 00:00:00 [code = DIABETIC FOOT EXAM] Future Scheduled 2017-12-31 DIABETES: RETINAL EYE [place] [facility] Test 00:00:00 EXAM [code = DIABETES: RETINAL EYE EXAM] Future Scheduled 1990 Screening for [place] Me thodist Test 00:00:00 malignant neoplasm of cervix (procedure) [code = 582528224] Future Scheduled 1985 COVID-19 VACCINE (1 [place] [facility] [facility] Test 00:00:00 of 2) [code = COVID-19 VACCINE (1 of 2)] Encounters Start End Encounter Admission Attending Care Care Encounter Source Date/Time Date/Time Type Type Clinicians Facility Department ID 2020-08-30 2020-08-30 Outpatient [facility] [id number] [place] 00:00:00 00:00:00 ABELARDOTAN [address] 2020-08-29 2020-08-29 Outpatient NAUTIYAL, [place] [id number] [place] 00:00:00 00:00:00 ABELARDOTAN [address] 2020-08-28 2020-08-28 Outpatient NAUTIYAL, [place] [id number] [place] 00:00:00 00:00:00 ABELARDOTAN [address] 2020-08-27 2020-08-27 Outpatient NAUTIYAL, [place] [id number] [place] 00:00:00 00:00:00 ABELARDOTAN [address] 2020-08-26 2020-08-26 Outpatient NAUTIYAL, [place] [id number] [place] 00:00:00 00:00:00 KIRTAN [address] 2020-08-09 2020-08-09 Outpatient STEPHANIE, [facility] [id number] [place] 00:00:00 00:00:00 LIDYA [address] 2020-08-07 2020-08-07 Outpatient STEPHANIE, [facility] [id number] [place] 00:00:00 00:00:00 LIDYA [address] 2020-07-30 2020-07-30 Outpatient BOBBY, [facility] [id number] [place] 00:00:00 00:00:00 MANOJ [address] 2020-07-22 2020-07-22 Outpatient FAKOYA, [facility] [id number] [place] 00:00:00 00:00:00 LATIFA [address] 2020-07-11 2020-07-11 Outpatient ASHLEY, [facility] [id number] [place] 00:00:00 00:00:00 RUDDY [address] 2019-12-28 2019-12-28 Outpatient ZAINAB, [facility] [id number] [place] 00:00:00 00:00:00 PRIYANK [address] 2019-11-17 2019-11-17 Outpatient MANDY VELAZCO [facility] [id number] [place] 00:00:00 00:00:[address] 2014-07-20 2014-07-20 Outpatient GARRET Gusman [id number] 07:40:00 23:59:00 Tono Pierce 00 Results Test Description Test Time Test Comments Results Result Comments Source CBC with platelet and differential 2020-09-22 02:30:00 Test Item Value Reference Range Interpretation Comme nts WBC (test code = 6690-2) 3.0 3.8- 10.8 Thousand/uL L RBC (test code = 789-8) 2.98 3.80- 5.10 Million/uL L HGB (test code = 718-7) 11.4 g/dL 11.7-15.5 L HCT (test code = 4544-3) 33.0 % 35-45 L MCV (test code = 787-2) 110.7 fL 80-100 H MCH (test code = 785-6) 38.3 pg 27-33 H MCHC (test code = 786-4) 34.5 g/dL 32-36 RDW (test code = 788-0) 14.2 % 11-15 Platelet count (test code = 147 140- 400 Thousand/uL 777-3) MPV (test code = 776-5) 14.5 fL 7.5-12.5 H Neutrophils, absolute (test 2244 1,500 - 7,800 cells/uL code = 751-8) Lymphocytes, absolute (test 408 850- 3,900 cells/uL L code = 731-0) Monocytes, absolute (test code 288 200- 950 cells/uL = 742-7) Eosinophils, absolute (test 30 15- 500 cells/uL code = 711-2) Basophils, absolute (test code 30 0- 200 cells/uL = 704-7) Neutrophils (test code = 74.8 % 770-8) Lymphocytes (test code = 13.6 % 736-9) Monocytes (test code = 5905-5) 9.6 % Eosinophils (test code = 1.0 % 713-8) Basophils + RC (test code = 1.0 % 706-2) SYDNIE (test code = SYDNIE) AN UPDATE OR CORRECTION HAS BEEN MADE TO NAME RAC (test code = RAC) Performing Organization Information: Site ID: [id number] Name: [facility] [facility] Address: [address] [place] [phone] Director: Charli Foote Lab Interpretation (test code Abnormal = 75700-7) [facility] lab [id number] 13:49:40Right femoral access 7F with US guidance. SG to wedge with flouro. Pressures, saturations recorded. P ressure hemostasis with no complication. Indication pulmonary hypertension suggested from non-invasive study and high right atrial pressure on prior invasive recording. Findings refute both. Recommendation: No change in Rx. Consider abnormal PVR with symptoms/elevated pressures during exercise. Plan for bicycle echo exercise when COVID restrictions are eased.[facility] [id number] 17:06:30 Test Item Value Reference Range Interpretation Comments POC glucose (test 84 mg/dL 65-99 N[employer]er N ruddy: Le code = 54352-1) Ryne ice ID: [id number] able: No Action Needed [facility] [id number] 11:23:24 Test Item Value Reference Range Interpretation Comments POC sodium (test code = 140 mmol/L 291-191 3734-0) POC potassium (test 3.8 mmol/L 3.5-5 code = 6298-4) POC chloride (test code 103 mmol/L 99-109 = 2069-3) POC CO2 (test code = 25 mmol/L 24-31 85038-6) POC glucose (test code 122 mg/dL 65-99 H = 2339-0) POC BUN (test code = 16 mg/dL 8 6299-2) POC creatinine (test 0.6 mg/dl 0.5-0.9 code = 51970-1) POC hematocrit (test 45 % 37-47 code = 4544-3) POC anion gap (test 17 mmol/L 05-09 [employer]er Name: code = 9253119) Rohit Diaz ID: [id number] Lab Interpretation Abnormal (test code = 81370-0) Lior MethodistEstimated [id number] 11:23:24 Test Item Value Reference Range Interpretation Comments Estimated GFR (test >=90 mL/min/1.73 m2 Caterg ory Units code = 27514-9) Interpretati onG1 >=90 Normal or highG2 60-89 Mildly nqnabmlzvV4y 45-59 Mildly to mode rately naubwctnxB5r 30-44 Moderately to severely decreasedG4 15-29 Severely decre asedG5 <15 Kidn ey failureThe eGFR was calculated usin g the Chronic Kidney Disease Epidemiology Co llaboration (CKD-EPI) equat ion. Interpretation is based on recommendations of the National Kidney Foundation-Kidn ey Disease Outcomes Qualit y Initiative (NKF-KDOQI) pub lished in 2014. Lior AguiaristSmear [id number] 11:17:52 Test Item Value Reference Range Interpretation Comments Platelet slide review Pino slt decr (test code = 38118-6) Anisocytosis (test code = Moderate 702-1) Polychromasia (test code Moderate = 01397-4) Enlarged platelets (test Moderate A code = 92166-4) SYDNIE (test code = SYDNIE) K recollect requested form Leah Bee/ Fire Loss Prevention Engineer Pro Op at 08/09/2020 11:07 by JN1. Lab Interpretation (test Abnormal code = 32002-9) [facility] metabolic [id number] 11:03:48 Test Item Value Reference Range Interpretation Comments Sodium (test code = 133 135- 148 mEq/L L 2951-2) Potassium (test code = SEE COMMENT 3.5- 5.0 mEq/L Dylan tnote---------U 2823-3) nable to report K due to hemolysi s; recollect reque st pending Chloride (test code = 98 98- 112 mEq/L 2075-0) CO2 (test code = 8-9) 22 24- 31 mEq/L L Anion gap (test code = 13@ANIO 7- 15 mEq/L 40644-4) BUN (test code = 3094-0) 16 mg/dL 6-20 Creatinine (test code = 0.56 mg/dL 0.5-0.9 2160-0) Glucose (test code = 167 mg/dL 65-99 H 2345-7) Calcium (test code = 9.5 mg/dL 8.3-10.2 08654-3) Lab Interpretation (test Abnormal code = 63485-6) [place] MethodistC-reactive [id number] 01:49:00 Test Item Value Reference Range Interpretation Comments CRP (test code = 1.3 mg/L <8.0 1988-5) SYDNIE (test code = FASTING:YESFASTING: YES SYDNIE) RAC (test code = Performing Organization RAC) Information: Site ID: [id number] Name: [facility] Address: [address] [place] [phone] Director: Charli Foote [place] StefaniaistC4 complement [id number] 01:49:00 Test Item Value Reference Range Interpretation Comments C4 complement (test 16 mg/dL 15-57 code = 4498-2) SYDNIE (test code = SYDNIE) FASTING:YESFASTING: YES RAC (test code = RAC) Performing Organization Information: Site ID: [facility] Name: [facility] Address: [address] [place] [phone] Director: Charli Foote [place] MethodistC3 complement [id number] 01:49:00 Test Item Value Reference Range Interpretation Comments C3 complement (test code 71 mg/dL 83-193 L = 8395-9) SYDNIE (test code = SYDNIE) FASTING:YESFASTING: YES RAC (test code = RAC) Performing Organization Information: Site ID: [id number] Name: [facility] Address: [address] [place] [phone] Director: Charli Foote Lab Interpretation (test Abnormal code = 05971-4) [place] MethodistSedimentation [id number] 01:49:00 Test Item Value Reference Range Interpretation Comments Sedimentation rate (test 25 mm/h < OR = 20 H code = 4537-7) SYDNIE (test code = SYDNIE) FASTING:YESFASTING: YES RAC (test code = RAC) Performing Organization Information: Site ID: RGA Name: [facility] Address: [address] [place] [phone] Director: Charli Foote Lab Interpretation (test Abnormal code = 70202-6) [place] MethodistUrinalysis, automated with [id number] 01:49:00 Test Item Value Reference Range Interpretation Comments Color, UA (test code = YELLOW YELLOW 5778-6) Appearance (test code CLEAR CLEAR = 5767-9) Specific gravity, 1.003 1.001-1.035 urine (test code = 5811-5) pH, urine (test code = 5.5 5.0-8.0 5803-2) Glucose, urine (test NEGATIVE NEGATIVE code = 16287-4) Bilirubin, UA (test NEGATIVE NEGATIVE code = 5770-3) Ketones, UA (test code NEGATIVE NEGATIVE = 2514-8) Occult blood, urine NEGATIVE NEGATIVE (test code = 5794-3) Protein, UA (test code NEGATIVE NEGATIVE = 41943-1) Nitrite, UA (test code NEGATIVE NEGATIVE = 5802-4) Leukocyte esterase, UA NEGATIVE NEGATIVE (test code = 5799-2) WBC, UA (test code = NONE SEEN < OR = 5 /HPF 5821-4) RBC, UA (test code = NONE SEEN < OR = 2 /HPF 38091-5) Squamous epithelial NONE SEEN < OR = 5 /HPF cells, UA (test code = 93457-3) Bacteria, UA (test NONE SEEN NONE SEEN /HPF code = 5769-5) Hyaline casts, UA NONE SEEN NONE SEEN /LPF (test code = 5796-8) SYDNIE (test code = SYDNIE) FASTING:YESFASTING: YES RAC (test code = RAC) Performing Organization Information: Site ID: PHIL Name: [facility] Address: [address] [place] [phone] Director: Charli BatresUrine protein/creatinine ratio, [id number] 01:49:00 Test Item Value Reference Interpretation Comments Range Creatinine, urine, 10 mg/dL 20-275 L random (test code = 2161-8) Protein/Creat Ratio NOTE 0.021- 0.161 THE PROT EIN VALUE IS (test code = mg/mg creat LESS THAN 4 2890-2) MG/DLTHEREFORE WE ARE UNABLE TO CALCULATEEXCRET ION AND/OR CREATINI NE RATIO. Protein, urine <4 5-24 L random (test code = 2888-6) SYDNIE (test code = FASTING:YESFASTI SYDNIE) NG: YES RAC (test code = Performing RAC) Organization Information: Site ID: PHIL [facility] Address: [address] [place] [phone] Director: Charli Foote Lab Interpretation Abnormal (test code = 97276-1) [place] MethodistDNA(ds) Ab, high [id number] 01:49:00 Test Item Value Reference Range Interpretation Comments DNA(DS) Ab, high <12.3 < OR = 30.0 IU/mL avidity (test code = 07397-7) SYDNIE (test code = FASTING:YESFASTING: YES SYDNIE) RAC (test code = Performing Organization RAC) Information: Site ID: EZ Name: [facility], Address: [address] [place] [phone] Director: Sarika Ansari MD,PhD,CATHI [place] MethodistVitamin B12 [id number] 20:20:00 Test Item Value Reference Range Interpretation Comments Vitamin B12 (test code = >2000 200-1100 H 2132-9) SYDNIE (test code = SYDNIE) FASTING:YESFASTING: YES RAC (test code = RAC) Performing Organization Information: Site ID: PHIL Name: [facility] Address: [address] [place] [phone] Director: Charli Foote Lab Interpretation (test Abnormal code = 39328-9) [place] MethodistFerritin [id number] 20:20:00 Test Item Value Reference Range Interpretation Comments Ferritin level (test 49 ng/mL 16-232 code = 2276-4) SYDNIE (test code = SYDNIE) FASTING:YESFASTING: YES RAC (test code = RAC) Performing Organization Information: Site ID: [facility] Name: [facility] Address: [address] [place] [address] Director: Charli Foote [place] [id number] 20:20:00 Test Item Value Reference Range Interpretation Comments LDH (test code = 199 U/L 120-250 89272-8) SYDNIE (test code = FASTING:YESFASTING: YES SYDNIE) RAC (test code = Performing Organization RAC) Information: Site ID: [facility] Name: [facility] Address: [address] [place] [phone] Director: Charli Foote [place] MethodistZinc level, [id number] 20:20:00 Test Item Value Reference Range Interpretation Comments Zinc (test 65 60- 130 mcg/dL This test wa s code = developed and i ts 5763-8) analytical perf ormance characteristics have been determined by [employer]. It has not been cl eared or approved by theFDA. This assay has been validated pursu ant to the CLIA regula tions and is used for clinical purpos es. SYDNIE (test FASTING:YESFASTING: code = SYDNIE) YES RAC (test Performing code = RAC) Organization Information: Site ID: SLI [facility] Address: [address] [place] [address] Director: Nikita Tinajero MethodistVitamin B1 level, whole [id number] 20:20:00 Test Item Value Reference Interpretation Comments Range Vitamin B1, whole 77 nmol/L 78-185 L Vitamin blood (test code = supplemen tation 37893-5) within 24 hours prior toblood d raw may affect the accuracy of res ults. This test was developed and i ts analytical performance characteristics have been determined by [employer]. It has not been cleared or appr sara by theFDA. This assay has been validated pursu ant to the CLIA regulations and is used for clinic al purposes. SYDNIE (test code = FASTING:YESFASTIN SYDNIE) G: YES RAC (test code = Performing RAC) Organization Information: Site ID: [facility] Name: [facility] Address: [address] [place] [phone] Director: Nikita Chacon M.D. Lab Interpretation Abnormal (test code = 92473-4) [place] MethodistCopper level, [id number] 20:20:00 Test Item Value Reference Interpretation Comments Range Copper (test code = 42 70- 175 mcg/dL L This test was 5631-7) developed and i ts analytical performance characteristics have been determined by [employer]. It has not been cleared or appr sara by theFDA. This assay has been validated pursu ant to the CLIA regulations and is used for clinic al purposes. SYDNIE (test code = FASTING:YESFASTIN SYDNIE) G: YES RAC (test code = Performing RAC) Organization Information: Site ID: [facility] Name: [facility] Address: [address] [phone] Director: Nikita Chacon M.D. Lab Interpretation Abnormal (test code = 99083-9) [place] MethodistReticulocyte count, [id number] 20:20:00 Test Item Value Reference Range Interpretation Comments Retic count, 2.3 % manual (test code = 54656-1) Retic absolute, 35136 20,000 - 80,000 auto (test code = cells/uL 20392-4) SYDNIE (test code = FASTING:YESFASTING: YES SYDNIE) RAC (test code = Performing Organization RAC) Information: Site ID: RGA Name: [facility] Address: [address] [place] [address] Director: Charli Foote [place] MethodistTotal iron binding [id number] 20:20:00 Test Item Value Reference Range Interpretation Comments Iron level (test 58 45- 160 mcg/dL code = 2498-4) Iron binding 315 250- 450 mcg/dL capacity (test code (calc) = 2500-7) Iron saturation 18 16- 45 % (calc) (test code = 2502-3) SYDNIE (test code = FASTING:YESFASTING: SYDNIE) YES RAC (test code = Performing RAC) Organization Information: Site ID: RGA Name: [facility] Address: [address] [place] [address] Director: Charli Tinajero MethodistImmunofixation, [id number] 20:20:00InterpretationComment: Normal pattern. No monoclonal proteins detected. [employer] [facility] FASTING:YESFASTING: YESPerforming Organization Information: Site ID: IG Name: [facility] Address: [address] [place] [address] Director: Dr. Charli BatresMRI Abdomen W Wo [id number] 15:34:01Hm Interface, Radiology Results Incoming - 07/11/2020 3:37 PM CDTEXAMINATION: MRI ABDOMEN W WO CONTRASTCLINICAL HISTORY: 49 years Female K76.1 Chronic passive congestion of liver, K76.1 CHRONIC PASSI VE CONGESTION OF LIVERTECHNIQUE: Multiplanar multisequence MR images of the abdomen were obtained pre- and post dynamic gadolinium based contrast administration.Contrast: Gadobutrol (Gadavist)Comparison: August 10, 2018.IMPRESSION:Lower Chest: Lung bases are clear. Liver: Few tiny foci of hypervascularity are seen in the liver, similar to the prior exam when accounting for differences in technique. The previous "nutmeg" appearance of the liver is less prominent likely related to differences in contrast timing.Gallbladder/Biliary: Gallbladder is unremarkable. There is no biliary dilatation. Spleen: Normal in size.Pancreas: Unremarkable.Adrenal Glands: Unremarkable.Kidneys: Unchanged left renal pelvocaliectasis. Right kidney within normal limits.Vascular: IVC and hepatic veins are distended, similar to previous study, without stenosis or thrombosis. Patent portal vein.Nodes: No regional adenopathy.Bowel: Bowel is unobstructed. Ascites/fluid collections: None.Musculoskeletal: No suspicious osseous lesions. Other: None.SUMMARY:1.Previously seen nutmeg appearance of the liver is less prominent on today's study likely related to differences in contrast timing/technique. The hepatic veins and IVC remain mild to moderately distended, and without evidence of stenosis or thrombosis. Liver is normal in contour, without cirrhotic features.2.Unchanged left renal pelvocaliectasis.[id number] [facility] MRI Cervical Spine W Wo [id number] 12:20:22Hm Interface, Radiology Results 11/17/2019 12:23 PM CSTEXAMINATION: MRI CERVICAL SPINE W WO CONTRASTCLINICAL HISTORY: M54.12 Radiculopathy cervical region, neck painCOMPARISON: NoneTECHNIQUE: Multiplanar multisequence noncontrast enhanced examination was performed of the cervical spine precontrast as well as postcontrast axial and sagittal T1 images.FINDINGS:Vertebral body heights are maintained. No focal marrow lesions or acure edema identified.There is some reversal the cervical lordosis centered at C5. There is no spondylolisthesis. Mild Modic type I endplate changes are noted anteriorly at C6-7 with mild edema and enhancement. No significant marrow changes appreciated.The cervicomedullary junction is unremarkable. No cord signal abnormality identified. The partially imaged posterior fossa is grossly intact.No gross masses are present in the visualized prevertebral soft tissues. Axial images through the disc spaces demonstrate the following:C1-C2: There is narrowing of the atlantoaxial interval with spurring. There is no significant stenosis.C2-C3: No significant posterior disc disease, spinal canal or neural foraminal stenosis.C3-C4: No significant posterior disc disease, spinal canal or neural foraminal stenosis.C4-C5: There is mild disc desiccation without disc bulge or significant spondylosis. The canal and foramina are widely patent.C5-C6: There is mild disc desiccation with anterior osteophytosis. There is no posterior spondylosis or canal narrowing. Uncovertebral arthrosis and facet disease is present on the left without stenosis.C6-C7: There is loss of disc height with anterior osteophytosis. There is no posterior spondylosis or canal narrowing. Uncovertebral arthrosis and facet disease results in mild and is a left foraminal fat. There is also a shallow left foraminal protrusion which abuts the exiting left C7 nerve root. Correlate for a left C7 radiculopathyto determine clinical significance. The right foramen is patent.C7-T1: No significant posterior discdisease, spinal canal or neural foraminal stenosis.IMPRESSION: There are degenerative changes most prominent at C6-7 with loss of disc height and disc desiccation. Uncovertebral arthrosis and facet disease is also present on the left with question with shallow left foraminal protrusion. There is some degree of left foraminal narrowing identified with partial effacement of the perineural fat. Correlate for a left C7 radiculopathy to determine clinical significance of this finding. No other significant abnormality appreciated.[facility] ASSOCIATIONL-[id number] MethodistPOC [id number] 10:51:55 Test Item Value Reference Range Interpretation Comments POC creatinine (test 0.6 mg/dl 0.5-0.9 Operato r Name: code = 59723-1) [place] ID: [id number] [facility]
[2020-10-04] MEDS ORDERED: NA CHLORIDE 0.9% 1,000 ML ONE (08:41)
[2020-10-04 08:42] LABS: Absolute Lymphocytes (CBC) 0.5 K/uL (0.7-4.9); Basophils % 0.4 % (0-1.3); Hematocrit 35.4 % (36.0-45.0); Lymphocytes % 14.6 % (15.3-44.8); MPV 12.3 fL (7.6-11.3); RBC Red Blood Cell Count 3.16 M/uL (3.86-4.86)
[2020-10-04] MEDS ORDERED: CEFAZOLIN/SWI 1gm 1 GM/10 ML SYR ONE (08:42)
[2020-10-04] MEDS ORDERED: SCOPOLAMINE HYDROBROMIDE PATCH TD ONE (08:42)
[2020-10-04] MEDS ORDERED: Mastisol Adhesive Liq ONE (08:50)
[2020-10-04] MEDS ORDERED: NS 0.9% VIAL 40 ML ONE (08:50)
[2020-10-04] MEDS ORDERED: CEFAZOLIN SODIUM 1 GM/VIAL ONE ×2 (08:50→12:48)
[2020-10-04] MEDS ORDERED: BACITRACIN 50000 UNIT VIAL ONE (08:50)
[2020-10-04] MEDS ORDERED: Ringers Lactate 0 ML IV ONE ×2 (08:50→08:51)
[2020-10-04] MEDS ORDERED: GENTAMICIN SULF 80 MG/2ML INJ ONE (08:50)
[2020-10-04] MEDS ORDERED: LIDOCAINE 1% W/EPI 1:100,000 10 ML VIAL ONE (08:51)
--- NOTE | 2020-10-04 09:06 | RAD REPORT ---
EXAM DESCRIPTION: Giana Degroot And Nabeel (2 Views)10/04/2020 8:00 am CLINICAL HISTORY: Preop for breast surgery COMPARISON: None FINDINGS: The lungs appear clear of acute infiltrate. The heart is normal size IMPRESSION: No acute abnormalities displayed
[2020-10-04] MEDS ORDERED: MIDAZOLAM HCL 2 MG/2 ML INJ ONE (09:07)
[2020-10-04] MEDS ORDERED: propofoL 200 MG/20 ML VIAL IV ONE (09:07)
[2020-10-04] MEDS ORDERED: LIDOCAINE 2% MPF 5 ML VIAL ONE (09:08)
[2020-10-04] MEDS ORDERED: FENTANYL CITR 250 MCG/5 ML ONE (09:08)
[2020-10-04] MEDS ORDERED: ONDANSETRON 4 MG/2 ML VIAL ONE ×3 (09:08→14:51)
[2020-10-04] MEDS ORDERED: ROCURONIUM 50 MG/5 ML VIAL IV ONE (09:08)
[2020-10-04 09:17] LABS: Anisocytosis 1+; Blood Morphology Comment NOTED (NOT SEEN); Macrocytosis 3+; Platelet Estimate ADEQ; Target Cells 1+; White Blood Cell Scan OK (OK)
[2020-10-04] MEDS ORDERED: EPINEPHRINE/PF 1 MG/ML AMP ONE (09:27)
[2020-10-04] MEDS ORDERED: NS 0.9% VIAL 10 ML ONE ×4 (09:41→13:03)
[2020-10-04] MEDS ORDERED: VECURONIUM 10 MG/VIAL IV ONE (11:56)
--- NOTE | 2020-10-04 12:12 | EKG ---
Test Date: 2020-10-04 Test Time: 07:44:25 Financial Sales Representative: JOAQUIN MEASUREMENT RESULTS: Intervals: Rate: 69 CA: 120 QRSD: 84 QT: 388 QTc: 415 [place]: P: 57 CA: 120 QRS: 68 T: 56 INTERPRETIVE STATEMENTS: Normal sinus rhythm Normal ECG No previous ECG available for comparison Electronically Signed On 10-04-20 12:11:37 PLUSH CUTTER by Walker Razo
[2020-10-04] MEDS ORDERED: Phenylephrine HCl 10 MG/ML 1 ML VIAL ONE (13:03)
[2020-10-04] MEDS ORDERED: NEOSTIGMINE 1 MG/ML -5 ML ONE (13:12)
[2020-10-04] MEDS ORDERED: GLYCOPYRROLATE 0.2 MG/ML SYR ONE (13:12)
[2020-10-04] MEDS ORDERED: NA CHLORIDE 0.9% 3,000 ML ONE (13:52)
[2020-10-04] MEDS ORDERED: KETOROLAC 30 MG/ML INJ IV ONE (15:20)
[2020-10-04] MEDS ORDERED: KETOROLAC 30 MG/ML INJ ONE (15:29)
[2020-10-04 16:40] VITALS: BP 99/50; TEMP 98; O2SAT 98
--- NOTE | 2020-10-07 07:40 | OP ---
Surgeon: Davi Banerjee MD Preoperative Diagnosis: Breast descent status post implants. Postoperative Diagnosis: Breast descent status post implants. Procedure Performed: Explantation and lift and fat transfer. Hourly Sales Staff: None. Anesthesia: General. Procedure In Detail: After satisfactory induction of general anesthesia, the abdomen and breast were prepped with DuraPrep and dry sterile drapes applied in the usual manner. A 15 blade was used to make incision cephalad to the anterior explant bilaterally. A 2 mm cannula was used to infiltrate approximately 300 cc injected at each flank and then a 4 mm cannula was used to aspirate approximately 250 out of each side as well as to gravitate. The wounds were closed with 4-0 PDS later with tinture of benzoin and Steri-Strips. Abdominal binder applied at the end of the case. the breast and chest draped and the nipple-areolar complex was marked out with a 38 mm template. Then a transverse curvilinear incision was made and the skin was de-epithelialized with dermabrader and EpiCut. Then a transverse incision was made. The flap was elevated toward the sternum, clavicle, anterior axillary line. Then retropectoral dissection was done. The implants were removed The right implant weighed 330, left implant weighed 312. The patient then had the inferior incision made and 3-0 PDS suture used to pull the hemispherical incision closer together through its projection of the cone. Three sutures were placed with 2-0 PDS suture. The left side done in identical manner. We then returned to the right side and then the 10 SHARATH was brought out the axilla, sewn in place with 2-0 silk and then the wound was closed with 3-0 Vicryl sutures and 3-0 PDS running subcuticular from medial to lateral and lateral to medial and tied in vertical meridian of the breast. Left side done in identical manner. Patient was sat up, site for new nipple-areolar complex was marked out. The tissue was cored out with a 38 mm template and nipple areolar complex delivered and perfused very well. Interrupted 4-0 PDS sutures were placed at this time, 2 mm cannula was used to inject fat mostly into the cephalad lateral predominantly and cephalad very little, none elsewhere. The wound was then closed with more 4-0 PDS interrupted and then running 4-0 PDS running subcuticular followed by steristrips fluffs and Lucien wraps were applied at the end of the case. The patient tolerated procedure well. MARIAH/YAMILKA Voice ID: [id number] Report ID: [id number]
== END 2020-10-04 16:15 | disposition home health service (06) ==
LOC: OR 08:00
PROVIDERS: ATTEND Specialist
PROC: 0H0V37Z Alteration of Bilateral Breast with Autologous Tissue Substitute, Percutaneous Approach (ICD-10-PCS; 2020-10-04)
PROC: 0HSV0ZZ Reposition Bilateral Breast, Open Approach (ICD-10-PCS; principal; 2020-10-04 09:00)
PROC: 0HPU0JZ Removal of Synthetic Substitute from Left Breast, Open Approach (ICD-10-PCS; 2020-10-04 09:00)
PROC: 0HPT0JZ Removal of Synthetic Substitute from Right Breast, Open Approach (ICD-10-PCS; 2020-10-04 09:00)
DX: N64.81 Ptosis of breast (principal); Z45.812 Encounter for adjustment or removal of left breast implant; Z45.811 Encounter for adjustment or removal of right breast implant; Z20.822 Contact with and (suspected) exposure to COVID-19
CPT/HCPCS: 19316; 19328; 15771; 15772 ×2; 93005; 85025; 36415; 88305; 71046; J2704; J0171; J2370; J1580; J2250; J3010; J2710; J0690 ×3; J7030 ×2; J2405 ×3; J7120

== ENCOUNTER 2021-06-13 08:09 | Day surgery (SDC) | payer OTHER ==
--- NOTE | 2021-06-13 08:21 | RAD REPORT ---
EXAM DESCRIPTION: Giana Pa And Lat (2 Views)06/13/2021 8:11 am CLINICAL HISTORY: Preop for breast reconstruction COMPARISON: September 2020 FINDINGS: The lungs appear clear of acute infiltrate. The heart is normal size IMPRESSION: No acute abnormalities displayed
[2021-06-13 08:24] LABS: Urine Appearance CLEAR (Clear); Urine Bilirubin NEGATIVE (Negative); Urine Blood NEGATIVE (Negative); Urine Color YELLOW (Yellow); Urine Glucose 2+ (Negative); Urine Protein NEGATIVE (Negative); Urine Urobilinogen 0.2 mg/dL (0.2-1.0); Urine pH 5.5 (5.0-7.0)
[2021-06-13 08:26] LABS: Urine Microscopic Reflex NO UMIC
[2021-06-13 08:39] VITALS: O2SAT 100
[2021-06-13] MEDS ORDERED: NA CHLORIDE 0.9% 2,000 ML ONE (08:58)
[2021-06-13] MEDS ORDERED: EPINEPHRINE/PF 1 MG/ML AMP ONE (08:58)
[2021-06-13] MEDS ORDERED: VANCOMYCIN/NS 1 gm 1 GM/250 ML BAG IV ONE (09:15)
[2021-06-13] MEDS ORDERED: PIPER TAZO 3.375 GM in NA CHLORIDE 0.9% 100 ML IV ONE (09:15)
[2021-06-13] MEDS ORDERED: propofoL 200 MG/20 ML VIAL IV ONE (09:40)
[2021-06-13] MEDS ORDERED: MIDAZOLAM HCL 2 MG/2 ML INJ ONE (09:40)
[2021-06-13] MEDS ORDERED: ONDANSETRON 4 MG/2 ML VIAL ONE ×2 (09:41→12:22)
[2021-06-13] MEDS ORDERED: NS 0.9% VIAL 10 ML ONE (09:41)
[2021-06-13] MEDS ORDERED: dexAMETHasone 10 MG/ML VIAL ONE (09:41)
[2021-06-13] MEDS ORDERED: FENTANYL CITR 250 MCG/5 ML ONE (09:41)
[2021-06-13] MEDS ORDERED: LIDOCAINE 1% MPF 5 ML VIAL ONE (09:41)
[2021-06-13] MEDS ORDERED: VECURONIUM 10 MG/VIAL IV ONE (09:42)
[2021-06-13] MEDS ORDERED: EPHEDRINE SULF 50 MG/ML VIAL ONE (10:59)
[2021-06-13] MEDS ORDERED: KETOROLAC 30 MG/ML INJ ONE ×2 (11:30→13:02)
[2021-06-13] MEDS ORDERED: NEOSTIGMINE 1 MG/ML -5 ML ONE (11:30)
[2021-06-13] MEDS ORDERED: GLYCOPYRROLATE 0.2 MG/ML SYR ONE (11:30)
[2021-06-13 13:21] VITALS: BP 108/52; TEMP 97.3
--- NOTE | 2021-06-13 22:06 | OP ---
Surgeon: Davi Banerjee MD Preoperative Diagnosis: Scar status post explantation and lift, hypomastia. Postoperative Diagnosis: Scar status post explantation and lift, hypomastia. Procedure Performed: Liposuction of the flanks, fat transfer of the right breast, scar revision of b oth breasts. Anesthesia: General. Procedure In Detail: After satisfactory induction of general anesthesia, the patient was prepped wit h DuraPrep, dry sterile drapes were applied in the usual manner. A 15 blade was used to make incisio n in the anterior iliac spine area bilaterally. Infusion cannula was used about 2 mm and 500 cc infu sed in the right, 500 cc in the left flanks. Then flanks were aspirated, 300 cc from right, 300 cc f rom the left. The wound was closed with 4-0 PDS buried knot and Steri-Strips. Attention was turned to the breast. The scars which were near the inferior fold were excised, revised, and left breast wa s closed with 3-0 Vicryl and then 3-0 PDS running subcuticular tied from lateral to medial and medial to lateral, tied in the vertical meridian. Left side was excised and closed with 3-0 Vicryl and the n at this time 2 mm cannula was used to infuse fat. Fat infusion was performed using the cannula and 200 cc total were infused. The wound was then closed with the PDS suture from medial to lateral, la teral to medial, tied in the vertical meridian of the breast. Dressings consisted of Steri-Strips, 5 x4s, fluffs and Lucien wrap. A liposuction garment was applied over her abdomen. The patient tolerated procedure well, returned to recovery. The length incisions on the right and left breast, each approximately 25 cm. GH/MODL Voice ID: [id number] Report ID: [id number]
== END 2021-06-13 13:15 | disposition home or self-care (01) ==
LOC: OR 08:09
PROVIDERS: ATTEND Specialist
PROC: 0J083ZZ Alteration of Abdomen Subcutaneous Tissue and Fascia, Percutaneous Approach (ICD-10-PCS; 2021-06-13)
PROC: 0HB5XZZ Excision of Chest Skin, External Approach (ICD-10-PCS; principal; 2021-06-13 09:00)
PROC: 0H0V07Z Alteration of Bilateral Breast with Autologous Tissue Substitute, Open Approach (ICD-10-PCS; 2021-06-13 09:00)
DX: N64.82 Hypoplasia of breast (principal); L90.5 Scar conditions and fibrosis of skin; E65 Localized adiposity
CPT/HCPCS: 93005; 88302; 81003; 71046; 11406; 15771; 15772 ×3; 15877; J2704; J0171; J2543; J2250; J3010; J1100; J2710; J3370; J7030; J2405 ×2; 88305